=== PATIENT | male | born 1930 | race Caucasian/White ===

== ENCOUNTER → 2016-08-13 | Outpatient (CLI) | payer OTHER | LOC: FIMAGING 14:50 | PROVIDERS: ATTEND Physician Assistant Surgical | DX: M48.06 Spinal stenosis, lumbar region (principal); M89.38 Hypertrophy of bone, other site; M51.86 Other intervertebral disc disorders, lumbar region ==

== ENCOUNTER 2016-09-03 12:45 | Emergency (ER) | payer OTHER ==
[2016-09-03 12:55] VITALS: TEMP 98.2
[2016-09-03] MEDS ORDERED: NS 1,000 ML IV ONE (13:15)
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
--- NOTE | 2016-09-03 13:39 | CPEKG ---
Heart Rate: 83 RR Interval: 723 P-R Interval: 184 QRSD Interval: 96 QT Interval: 372 QTC Interval: 437 P Russian Mission: 58 QRS Russian Mission: -39 T Wave Russian Mission: 52 EKG Severity - BORDERLINE ECG - EKG Impression: SINUS RHYTHM EKG Impression: PROBABLE LEFT ATRIAL ABNORMALITY EKG Impression: LEFT AXIS DEVIATION EKG Impression: CONSIDER ANTERIOR INFARCT Electronically Signed By: Jamal Jamison 03-Sep-2016 13:51:07
[2016-09-03 13:56] LABS: % IMMATURE GRANULYOCYTES 0.4 % (0.0-1.1); ABSOLUTE IMMATURE GRANULOCYTES 0.03 10^3/uL (0.00-0.10); ADD DIFF? NO; ADD MORPH? NO; ADD SCAN? NO; ATYPICAL LYMPHOCYTE FLAG 0 (0-99); FRAGMENT RBC FLAG 0 (0-99); HEMATOCRIT 43.5 % (40.0-51.0); HEMOGLOBIN 14.7 g/dL (13.7-17.5); LEFT SHIFT FLG 0 (0-99); LIPEMIA HEMOLYSIS FLAG 90 (0-99); MEAN CELL HEMOGLOBIN 30.1 pg (27.9-34.1); MEAN CELL HEMOGLOBIN CONCENTR. 33.8 g/dL (32.4-36.7); MEAN PLATELET VOLUME 9.4 fL (8.7-11.7); PLATELET CLUMPS FLAG 0 (0-99); PLATELET COUNT 236 10^3/uL (150-400); RED BLOOD CELL COUNT 4.89 10^6/uL (4.40-6.38); RED CELL DISTRIBUTION WIDTH 14.4 % (11.5-15.2)
[2016-09-03 14:16] LABS: ANION GAP 13 mEq/L (8-16); CALCIUM 9.9 mg/dL (8.5-10.4); CARBON DIOXIDE 23 mEq/l (22-31); CHLORIDE 105 mEq/L (97-110); GLOMERULAR FILTRATION RATE > 60; GLUCOSE 137 mg/dL (70-100); POTASSIUM 4.2 mEq/L (3.5-5.2); SODIUM 141 mEq/L (134-144)
[2016-09-03 15:07] VITALS: BP 138/77; PULSE 87; RESP 18; O2SAT 97
== END 2016-09-03 15:07 | disposition home or self-care (01) ==
LOC: EDUNIT#
DX: F03.90 Unspecified dementia, unspecified severity, without behavioral disturbance, psychotic disturbance, mood disturbance, and anxiety (principal); I10 Essential (primary) hypertension; Z85.46 Personal history of malignant neoplasm of prostate; Z79.82 Long term (current) use of aspirin; V43.02XA Car driver injured in collision with other type car in nontraffic accident, initial encounter; Y92.481 Parking lot as the place of occurrence of the external cause; Y99.8 Other external cause status; Y93.89 Activity, other specified

== ENCOUNTER 2016-10-01 05:49 | Inpatient (IN) | payer OTHER ==
[2016-10-01] MEDS ORDERED: ceFAZolin 2 GM/DEXTROSE 100 ML IV ONE (06:17)
[2016-10-01] MEDS ORDERED: LR 1,000 ML IV ONE (06:21)
[2016-10-01] MEDS ORDERED: LIDOCAINE 1% 2 ML INJ ID PRN (06:21)
--- NOTE | 2016-10-01 06:39 | PDANEPAE ---
ANE History of Present Illness 85 yo M w lumbar radiculopathy, here for L1-4 laminectomy ANE Past Medical History - Cardiovascular History Hx Hypertension: Yes Hx Arrhythmias: No Hx Chest Pain: No Hx Coronary Artery / Peripheral Vascular Disease: No Hx CHF / Valvular Disease: No Hx Palpitations: No - Pulmonary History Hx COPD: No Hx Asthma/Reactive Airway Disease: No Hx Recent Upper Respiratory Infection: No Hx Oxygen in Use at Home: No - Neurologic History Hx Cerebrovascular Accident: No Hx Seizures: No Hx Dementia: No - Endocrine History Hx Diabetes: No - Renal History Hx Renal Disorders: No - Liver History Hx Hepatic Disorders: No - Neurological & Psychiatric Hx Hx Neurological and Psychiatric Disorders: Yes - Cancer History Hx Cancer: No - Congenital Disorder History Hx Congenital Disorders: No - GI History Hx Gastrointestinal Disorders: No - Chronic Pain History Chronic Pain: Yes ANE Review of Systems - Exercise capacity METS (RN): 3 METS - Systems Cardiac: Reports: other (h/o CAD s/p stent) - Cardio Pulmonary Function Testing Nuclear stress test: 09/20/2016 Nuclear stress test--negative ANE Patient History - Allergies Allergies/Adverse Reactions: atorvastatin [From Lipitor] Allergy (Verified 09/26/16 17:17) penicillin G Allergy (Verified 09/26/16 17:17) Sulfa (Sulfonamide Antibiotics) Allergy (Verified 09/26/16 17:17) Other-Enter Comments IV contrast Allergy (Uncoded 09/26/16 17:17) Other-Enter Comments - Home Medications Home medications: home medication list seen and reviewed Home Medications: Amlodipine Besylate [Norvasc] 5 mg PO DAILY 09/20/16 [Last Taken Unknown] Aspirin EC [Aspirin EC 325 mg (*)] 325 mg PO DAILY 09/20/16 [Last Taken Unknown] C/E/Zn/Cu/OM3/DHA/EPA/LUT/ZEAX [Preservision Areds 2 Softgel] 1 each PO BID [Last Taken Unknown] Docusate Sodium [Colace 100 MG (*)] 100 mg PO BID 09/20/16 [Last Taken Unknown] Gemfibrozil [Lopid 600 MG (*)] 600 mg PO BIDAC 09/20/16 [Last Taken Unknown] Herbals/Supplements -Info Only 1 ea PO DAILY 09/20/16 [Last Taken Unknown] Loratadine 10 mg PO DAILY 09/20/16 [Last Taken Unknown] Methimazole [Tapazole 5MG (*)] 5 mg PO DAILY 09/20/16 [Last Taken Unknown] Multivitamins [Multivitamin (*)] 1 tab PO DAILY 09/20/16 [Last Taken Unknown] Naproxen Sodium [Aleve 220 MG (*)] 220 mg PO BID 09/20/16 [Last Taken Unknown] Propylene Glycol/Peg 400 [Systane 0.3-0.4% Eye Drops] 1 drop EACHEYE BID [Last Taken Unknown] Psyllium Husk (with Sugar) [Metamucil Powder] 1 tsp PO DAILY 09/20/16 [Last Taken Unknown] Verapamil HCl [Verapamil Sr] 120 mg PO DAILY 09/20/16 [Last Taken Unknown] Tamsulosin HCl 09/26/16 [Last Taken Unknown] - NPO status NPO Since - Liquids (Date): 09/30/16 NPO Since - Liquids (Time): 20:00 NPO Since - Solids (Date): 09/30/16 NPO Since - Solids (Time): 20:00 - Anes Hx Anes Hx: no prior problems - Smoking Hx Smoking Status: Never smoked - Alcohol Use Alcohol Use: Occasionally - Family Anes Hx Family Anes Hx: none ANE Labs/Vital Signs - Labs - CBC WBC: 7 HGB: 13.8 HCT: 40.8 Platelet Count: 213 - Labs - BMP Sodium: 138 Potassium: 4.5 Chloride: 107 CO2: 21 Glucose: 128 BUN: 20 Creatinine: 1.1 - Vital Signs Blood Pressure: 142/79 Heart Rate: 64 Respiratory Rate: 16 O2 Sat (%): 95 Height: 185.42 cm Weight: 100.698 kg ANE Physical Exam - Airway Neck exam: FROM Mallampati Score: Class 2 Mouth exam: normal dental/mouth exam, tierney - Pulmonary Pulmonary: no respiratory distress, clear to auscultation - Cardiovascular Cardiovascular: regular rate and rhythym, no murmur, rub, or gallop - ASA Status ASA Status: III ANE Anesthesia Plan Anesthesia Plan: general endotracheal anesthesia Lines/Monitors: arterial line
[2016-10-01] MEDS ORDERED: BUPIVACAINE/EPI 0.25% 30 ML SDV ONE (06:42)
[2016-10-01] MEDS ORDERED: BACITRACIN 50,000 UNITS/10 ML SYR IRR ONE (06:42)
[2016-10-01] MEDS ORDERED: BUPIVACAINE 0.25% 30 ML SDV ONE (06:42)
[2016-10-01] MEDS ORDERED: THROMBIN (BOVINE) 20,000 UNIT VIAL TP ONE (06:42)
--- NOTE | 2016-10-01 06:48 | PDHPUP ---
History & Physical Update H&P update statement: This history and physical update is based on an assessment of the patient which was completed after admission or registration (within 24 hours), but prior to the surgery/procedure. -Patient is marked -Consents signed by daughter and patient. Risks,benefits and alternatives to L1- L4 laminectomy discussed.
[2016-10-01] MEDS ORDERED: VANCOMYCIN 1.5 GM in D5W 250 ML IV ONE (07:00)
[2016-10-01] MEDS ORDERED: REMIFENTANIL HCL 1 MG VIAL ONE (07:03)
[2016-10-01] MEDS ORDERED: fentaNYL 100 MCG/2 ML INJ ONE ×3 (07:03→10:37)
[2016-10-01] MEDS ORDERED: PROPOFOL/EMULSION 500 MG/50 ML BOTTLE IV ONE (07:03)
[2016-10-01] MEDS ORDERED: PROPOFOL 200 MG/20 ML VIAL ONE (07:03)
[2016-10-01] MEDS ORDERED: LIDOCAINE 2% 100 MG/5 ML SYR ONE (07:08)
[2016-10-01] MEDS ORDERED: POLYETHYLENE GLYCOL 3350 17 GM PKT PO PRN (07:38)
[2016-10-01] MEDS ORDERED: MAGNESIUM HYDROXIDE 30 ML UDCUP PO PRN (07:38)
[2016-10-01] MEDS ORDERED: ONDANSETRON 4 MG/2 ML VIAL IVP PRN ×3 (07:38→10:37)
[2016-10-01] MEDS ORDERED: BISACODYL 10 MG SUPP PR PRN (07:38)
[2016-10-01] MEDS ORDERED: ONDANSETRON DISINTEGRATING 4 MG TAB PO PRN (07:38)
[2016-10-01] MEDS ORDERED: LACTULOSE 20 GM/30 ML UDCUP PO PRN (07:38)
[2016-10-01] MEDS ORDERED: diphenhydrAMINE 25 MG CAP PO PRN (07:38)
[2016-10-01] MEDS ORDERED: NS 1,000 ML IV SCH (07:45)
[2016-10-01] MEDS ORDERED: epHEDrine SULFATE 10 MG/ML SYR ONE (08:46)
[2016-10-01] MEDS ORDERED: PHENYLEPHRINE HCL 100 MCG/ML SYR ONE (08:54)
[2016-10-01] MEDS ORDERED: HYDROmorphONE/DILAUDID 1 MG/ML SYR IVP PRN ×2 (09:27→10:37)
[2016-10-01] MEDS ORDERED: NALOXONE HCL 0.4 MG/ML INJ IVP PRN ×2 (09:27→10:37)
[2016-10-01] MEDS ORDERED: fentaNYL 100 MCG/2 ML INJ IVP PRN (09:27)
[2016-10-01] MEDS ORDERED: OXYCODONE/APAP 5/325 TAB PO PRN ×2 (09:27→10:37)
[2016-10-01] MEDS ORDERED: ACETAMINOPHEN 500 MG TAB PO PRN ×2 (09:27→10:37)
[2016-10-01] MEDS ORDERED: fentaNYL 100 MCG/2 ML INJ IV PRN (10:06)
--- NOTE | 2016-10-01 10:06 | POSTOPPROG ---
Post Op Note Date of Operation: 10/01/16 Surgeon: Adnrea Bowling Funder: Hakeem Anesthesia: GET(General Endotracheal) Pre-op Diagnosis: lumbar stenosis Post-op Diagnosis: lumbar stenosis Indication: lumbar stenosis Procedure: L1-L4 laminectomy Inf/Abcess present in the surg proc area at time of surgery?: No EBL: 100cc Drains: Meek ROSA Addendum - Addendum .: S: resting comfortable O: NAD A&Ox3 MAEx4 5/5 and equal in BUE and BLE A/P 85y/o male s/p L1-L4 laminectomy -JOANNE x1 -Optimize pain management -Advance diet as tolerated -PT/OT -DVT prophx: TEDs, SCDs, Lovenox okay POD1 -Please notify NS of any change in neuro/motor exam
[2016-10-01] MEDS: fentaNYL 100 MCG/2 ML INJ IVP PRN ×4 (10:36→11:07)
[2016-10-01] MEDS: PSYLLIUM METAMUCIL 1 PKT PO SCH (11:31)
[2016-10-01] MEDS: amLODIPine BESYLATE 5 MG TAB PO SCH (11:31)
[2016-10-01] MEDS: SENNOSIDES/DOCUSATE SODIUM TAB PO SCH ×2 (11:31→19:44)
[2016-10-01] MEDS: DOCUSATE SODIUM 100 MG CAP PO SCH ×2 (11:32→19:44)
[2016-10-01] MEDS: FAMOTIDINE 20 MG TAB PO SCH ×2 (11:32→19:44)
[2016-10-01] MEDS: CETIRIZINE 10 MG TAB PO SCH (11:32)
[2016-10-01] MEDS: ACETAMINOPHEN 500 MG TAB PO SCH ×2 (13:51→20:42)
[2016-10-01] MEDS: HYDROCODONE/APAP 5/325 TAB PO PRN ×3 (13:52→21:59)
--- NOTE | 2016-10-01 14:23 | POSTANESTH ---
Post Anesthetic Evaluation Cardiovascular Status: Normal, Stable, Similar to Pre-Op Cond Respiratory Status: Normal, Stable, Similar to Pre-op Cond. Level of Consciousness/Mental Status: Mildly Sleepy, Arousable Pain Control: Adequate, Prn Tx Ordered Nausea/Vomiting Control: Adequate, Prn Tx Ordered Complications Possibly Related to Anesthesia: None Noted
--- NOTE | 2016-10-01 14:42 | GOP ---
[f rep st] OPERATIVE REPORT DATE OF OPERATION: 10/01/2016 SURGEON: Andrea Bowling MD MANAGER TERMINAL: Belen Palacio, BEKAH ANESTHESIA: General. PREOPERATIVE DIAGNOSIS: 1. 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 (please note, the connotation for the radiologist is numbering these levels as L2 through L5, however, we will call these L1 through L4 for consistency purposes as he has a sacralized lumbar vertebra causing the difference in numbering). 2. Lower extremity claudication. 3. Treatment refractory to nonoperative intervention. POSTOPERATIVE DIAGNOSIS: 1. Decompressive laminectomy with bilateral medial facetectomies, L1-L2, L2-L3 , L3-L4 (L2-L5 per radiology numbering scheme). 2. Use of intraoperative fluoroscopy, less than 1 hour physician time. 3. Use of neuromonitoring. PROCEDURE PERFORMED: 1. Decompressive laminectomy with bilateral medial facetectomies, L1-L2, L2-L3 , L3-L4 (L2-L5 per radiology numbering scheme). 2. Use of intraoperative fluoroscopy, less than 1 hour physician time. 3. Use of neuromonitoring. FINDINGS: per imaging SPECIMENS: None. ESTIMATED BLOOD LOSS: 100 mL. INDICATIONS: The patient is an 85-year-old gentleman with a history of slight dementia, who presented with worsening lower extremity claudication. He had evidence of a spinal stenosis L1-L2, L2-L3, L3-L4, which were also numbered as L2-L3, L3-L4, L4-L5 per radiology's films. He also has spondylosis at these adequate equivalent levels. Given his age and complaint mainly of lower extremity symptoms, he decided to proceed forth with surgery as described above. DESCRIPTION OF PROCEDURE: Patient was brought to the operating theater and underwent general endotracheal anesthesia without complications. Venodynes, VALERIO hose and appropriate lines were placed by Anesthesia. He was flipped prone onto the Adam frame, and all bony processes were inspected and padded. The lower lumbar region was prepped and draped in the usual sterile surgical fashion. A time-out was completed per protocol. The patient received antibiotics within 1 hour of incision. Using lateral fluoroscopy and spinal needle, we picked our entry point to the L1 through L4 levels. This was marked in the midline. The incision was infiltrated with Marcaine with epinephrine. The incision was taken down with the scalpel blade, and using monopolar, taken down to the midline through to the spinous process, and a subperiosteal dissection carried to the medial facet joints of L1-L2, L2-L3, L3-L4. We correlated these with the imaging studies on the MRI and x-ray and correlated with the levels of L2 through L5 on the patient 's radiology numbering. At this point, using a combination of the bur tip on the drill bit, Kerrison punches, and Leksell rongeur, we completed a decompressive laminectomy with bilateral medial facetectomies, L1-L2, L2-L3, L3-L4. Once we felt that everything was well decompressed on manual palpation, we again confirmed our level using lateral fluoroscopy. The wound was irrigated copiously with bacitracin irrigation and a drain left in the subfascial space. The wound was then closed in multiple layers using Vicryl sutures for the deep layers and Dermabond for the skin. The patient's wounds were dressed sterilely. He was then flipped supine onto the transfer cart, where he was awakened, extubated, and taken to the recovery room in stable condition. There were no complications and no noted changes on neuromonitoring throughout the procedure. COMPLICATIONS: None. /[id number]/MODL MTDD
[2016-10-01] MEDS: traMADol 50 MG TAB PO PRN (15:16)
[2016-10-01] MEDS: PROPYLENE GLYCOL EACHEYE SCH ×2 (16:35→19:53)
[2016-10-01] MEDS: METHIMAZOLE 5 MG TAB PO SCH (16:35)
[2016-10-01] MEDS: PEG EACHEYE SCH ×2 (16:35→19:53)
[2016-10-01] MEDS: GEMFIBROZIL 600 MG TAB PO SCH (17:26)
[2016-10-01] MEDS: METHOCARBAMOL 500 MG TAB PO PRN (19:44)
[2016-10-01] MEDS ORDERED: VANCOMYCIN HCL/NORMAL SALINE 250 ML IV ONE (20:00)
[2016-10-02] MEDS: HYDROCODONE/APAP 5/325 TAB PO PRN ×5 (04:44→23:54)
[2016-10-02] MEDS: ACETAMINOPHEN 500 MG TAB PO SCH ×3 (05:16→19:27)
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
[2016-10-02] MEDS: VERAPAMIL ER 120 MG TAB PO SCH (09:36)
[2016-10-02] MEDS: PSYLLIUM METAMUCIL 1 PKT PO SCH (09:37)
[2016-10-02] MEDS: amLODIPine BESYLATE 5 MG TAB PO SCH (09:37)
[2016-10-02] MEDS: FAMOTIDINE 20 MG TAB PO SCH ×2 (09:37→19:21)
[2016-10-02] MEDS: DOCUSATE SODIUM 100 MG CAP PO SCH ×2 (09:37→19:21)
[2016-10-02] MEDS: CETIRIZINE 10 MG TAB PO SCH (09:37)
[2016-10-02] MEDS: METHIMAZOLE 5 MG TAB PO SCH (09:38)
[2016-10-02] MEDS: GEMFIBROZIL 600 MG TAB PO SCH ×3 (09:38→18:43)
[2016-10-02] MEDS: SENNOSIDES/DOCUSATE SODIUM TAB PO SCH ×2 (09:40→19:21)
[2016-10-02] MEDS: PROPYLENE GLYCOL EACHEYE SCH ×2 (09:41→19:24)
[2016-10-02] MEDS: PEG EACHEYE SCH ×2 (09:41→19:24)
[2016-10-02] MEDS: ENOXAPARIN 40 MG/0.4 ML SYR SC SCH (13:07)
[2016-10-03] MEDS: ACETAMINOPHEN 500 MG TAB PO SCH ×3 (03:13→15:47)
[2016-10-03] MEDS: HYDROCODONE/APAP 5/325 TAB PO PRN (03:45)
[2016-10-03] MEDS: VERAPAMIL ER 120 MG TAB PO SCH (08:01)
[2016-10-03] MEDS: FAMOTIDINE 20 MG TAB PO SCH ×2 (08:01→19:48)
[2016-10-03] MEDS: SENNOSIDES/DOCUSATE SODIUM TAB PO SCH ×2 (08:01→19:47)
[2016-10-03] MEDS: DOCUSATE SODIUM 100 MG CAP PO SCH ×2 (08:01→19:48)
[2016-10-03] MEDS: GEMFIBROZIL 600 MG TAB PO SCH ×2 (08:01→17:10)
[2016-10-03] MEDS: PSYLLIUM METAMUCIL 1 PKT PO SCH (08:01)
[2016-10-03] MEDS: ENOXAPARIN 40 MG/0.4 ML SYR SC SCH (08:01)
[2016-10-03] MEDS: METHOCARBAMOL 500 MG TAB PO PRN (08:01)
[2016-10-03] MEDS: METHIMAZOLE 5 MG TAB PO SCH (08:01)
[2016-10-03] MEDS: CETIRIZINE 10 MG TAB PO SCH (08:02)
[2016-10-03] MEDS: amLODIPine BESYLATE 5 MG TAB PO SCH (08:02)
[2016-10-03] MEDS: PEG EACHEYE SCH ×2 (08:09→19:51)
[2016-10-03] MEDS: PROPYLENE GLYCOL EACHEYE SCH ×2 (08:09→19:51)
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
[2016-10-03] MEDS: traMADol 50 MG TAB PO PRN ×2 (10:24→17:10)
[2016-10-03] MEDS: IBUPROFEN 600 MG TAB PO PRN (19:48)
[2016-10-04] MEDS: ACETAMINOPHEN 500 MG TAB PO SCH ×3 (00:21→15:30)
[2016-10-04 03:41] VITALS: TEMP 97.9
[2016-10-04] MEDS: METHOCARBAMOL 500 MG TAB PO PRN (04:06)
[2016-10-04] MEDS: traMADol 50 MG TAB PO PRN (04:07)
[2016-10-04 07:54] VITALS: BP 116/56; PULSE 58; RESP 12; O2SAT 89
[2016-10-04] MEDS: IBUPROFEN 600 MG TAB PO PRN (08:47)
[2016-10-04] MEDS: DOCUSATE SODIUM 100 MG CAP PO SCH (08:48)
[2016-10-04] MEDS: GEMFIBROZIL 600 MG TAB PO SCH (08:48)
[2016-10-04] MEDS: SENNOSIDES/DOCUSATE SODIUM TAB PO SCH (08:48)
[2016-10-04] MEDS: amLODIPine BESYLATE 5 MG TAB PO SCH (08:48)
[2016-10-04] MEDS: FAMOTIDINE 20 MG TAB PO SCH (08:48)
[2016-10-04] MEDS: METHIMAZOLE 5 MG TAB PO SCH (08:48)
[2016-10-04] MEDS: CETIRIZINE 10 MG TAB PO SCH (08:49)
[2016-10-04] MEDS: VERAPAMIL ER 120 MG TAB PO SCH (08:49)
[2016-10-04] MEDS: ENOXAPARIN 40 MG/0.4 ML SYR SC SCH (08:50)
[2016-10-04] MEDS: PSYLLIUM METAMUCIL 1 PKT PO SCH (08:50)
[2016-10-04] MEDS: PEG EACHEYE SCH (09:09)
[2016-10-04] MEDS: PROPYLENE GLYCOL EACHEYE SCH (09:09)
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
== END 2016-10-04 15:41 | DRG 520 ==
LOC: F3N 05:49 → PREINTOOBSV 10:35 → SCHOBSVTOIN 10:45 → SCHINTOOBSV 10:46 → F3N 11:11 → OBSVTOIN 10-03 12:35
PROVIDERS: ADMIT Neurological Surgery; ATTEND Neurological Surgery
DX: M48.06 Spinal stenosis, lumbar region (principal); M47.896 Other spondylosis, lumbar region; F03.90 Unspecified dementia, unspecified severity, without behavioral disturbance, psychotic disturbance, mood disturbance, and anxiety; I48.91 Unspecified atrial fibrillation; N40.0 Benign prostatic hyperplasia without lower urinary tract symptoms; E78.5 Hyperlipidemia, unspecified; I10 Essential (primary) hypertension; E05.90 Thyrotoxicosis, unspecified without thyrotoxic crisis or storm; I73.9 Peripheral vascular disease, unspecified; Z95.5 Presence of coronary angioplasty implant and graft; Z85.46 Personal history of malignant neoplasm of prostate
CPT/HCPCS: 97116-GP; 97161-GP; 97166-GO; 97535-GO; G0378; G8987-GO-CK; G8988-GO-CJ; J1650; J2001; J2370; J2704; J3010; J3370

== ENCOUNTER 2017-03-19 17:58 | Inpatient (IN) | payer OTHER ==
--- NOTE | 2017-03-19 18:17 | EDPHY ---
H & P HPI/ROS: CHIEF COMPLAINT: AMS, weakness. HISTORY OF PRESENT ILLNESS: This patient is an 86 y/o male with recent diagnosis of dementia arriving via EMS with his daughter for evaluation of altered mental status and weakness. He lives alone in his own home, and his daughter discovered him lying sideways in bed, staring at the ceiling. Per nurse summary of EMS report, he was hypertensive and febrile in transport, oriented to person and place. He has history of frequent UTIs, and his daughter at bedside reports he has had a cough for several weeks. The patient reports he felt weak this morning. He thinks he was able to get up today, but then admits his daughter brought him here because he was unable to get out of bed. He denies current weakness, confusion, or illness. No headache, chest pain, abdominal pain, or dysuria. Further HPI limited by patient's dementia. REVIEW OF SYSTEMS: A 10 point review of systems was attempted, limited by patient's dementia. Past Medical/Surgical History: 1. Hypertension 2. Prostate cancer 3. Lymphoma 4. Melanoma Social History: Lives alone in his own home. Daughter at bedside. Nonsmoker. Smoking Status: Never smoked Physical Exam: General Appearance: Alert, slow to speak Eyes: Pupils equal and round, no conjunctival pallor or injection ENT, Mouth: Mucous membranes moist Neck: Normal inspection Respiratory: Lungs are clear to auscultation Cardiovascular: Regular rate and rhythm Gastrointestinal: Suprapubic fullness. Abdomen is soft and non-tender Neurological: Alert, oriented to person and place, nonfocal Skin: Warm and dry, no rash Extremities: Nontender, no pedal edema Psychiatric: Mood and affect normal Constitutional: Initial Vital Signs Temperature (C) 37.5 C 03/19/17 18:32 Heart Rate 78 03/19/17 18:32 Respiratory Rate 16 03/19/17 18:32 Blood Pressure 175/98 H 03/19/17 18:32 O2 Sat (%) 90 L 03/19/17 18:32 O2 Delivery Mode Room Air O2 (L/minute) 0.5 Allergies/Adverse Reactions: atorvastatin [From Lipitor] Allergy (Verified 09/26/16 17:17) penicillin G Allergy (Verified 09/26/16 17:17) Sulfa (Sulfonamide Antibiotics) Allergy (Verified 09/26/16 17:17) Other-Enter Comments IV contrast Allergy (Uncoded 09/26/16 17:17) Other-Enter Comments Home Medications: Medication Instructions Recorded Amlodipine Besylate [Norvasc] 5 mg PO DAILY 09/20/16 Aspirin EC [Aspirin EC 325 mg (*)] 325 mg PO DAILY 09/20/16 C/E/Zn/Cu/OM3/DHA/EPA/LUT/ZEAX 1 each PO BID 09/20/16 [Preservision Areds 2 Softgel] Gemfibrozil [Lopid 600 MG (*)] 600 mg PO BIDAC 09/20/16 Herbals/Supplements -Info Only 1 ea PO DAILY 09/20/16 Loratadine 10 mg PO DAILY 09/20/16 Methimazole [Tapazole 5MG (*)] 5 mg PO DAILY 09/20/16 Multivitamins [Multivitamin (*)] 1 tab PO DAILY 09/20/16 Naproxen Sodium [Aleve 220 MG (*)] 220 mg PO BID 09/20/16 Propylene Glycol/Peg 400 [SYSTANE 1 drop EACHEYE BID 09/20/16 0.3-0.4% EYE DROPS] Psyllium Husk (with Sugar) 1 tsp PO TID PRN 09/20/16 [Metamucil Powder] Verapamil HCl [Verapamil Sr] 120 mg PO DAILY 09/20/16 Tamsulosin HCl [Flomax 0.4 MG (*)] 0.4 mg PO BID 10/01/16 Melatonin [Melatonin 3 MG (*)] 3 mg PO HS 03/19/17 Medical Decision Making - Diagnostics Imaging Results: Imaging Impressions Abdomen X-Ray 03/20/17 12:24 Impression: 1. Mild air distention of the transverse colon, of questionable clinical significance, without definite evidence of obstruction. If symptoms persist and clinical suspicion warrants, consider CT. 2. Moderate stool in the proximal colon. CT brain: NAD Imaging: I viewed and interpreted images myself ED Course/Re-evaluation: 86 y/o male presents with altered mental status and weakness. He is alert but slow to speak, oriented to person and place. History of UTIs. Bladder feels distended on physical exam. Bladder scan reveals 800 mL of urine in the bladder. A Singer catheter was placed, with return of 1100 mL of urine. IV established. Plan for labs including CBC, chemistries, coag, UA, lactic acid, influenza swab. Plan for chest x-ray. Administered 1L IV NS. Chest x-ray negative for pneumonia. Urinalysis reveals 3-5 white blood cells. Urine culture sent. Rocephin 1 g IV given for possible urinary tract infection. Allergies discussed with the pt and his daughter; no allergy to pcn. AMS likely secondary to UTI, no other source identified. 19:45 Consulted with hospitalist service. Dr. Kerr accepts admission. Differential Diagnosis: Altered mental status including but not limited to hypoglycemia, infectious process, electrolyte abnormality, head injury and intoxicants. - Data Points Laboratory Results: Laboratory Results 03/20/17 04:50 03/20/17 04:50 Microbiology Results: MICROBIOLOGY 03/19/17 19:00 Urine,Clean Catch Urine Culture - Preliminary 03/20/17 04:23 Stool Gastrointestinal Tract Panel (PCR) - Final No Organism Detected Medications Given: Amlodipine Besylate (Norvasc) 5 mg PO DAILY NHI Stop: 09/16/17 08:59 Last Admin: 03/20/17 09:36 Dose: 5 mg Aspirin Buffered (Aspirin Ec) 325 mg PO DAILY NHI Stop: 09/16/17 08:59 Last Admin: 03/20/17 09:36 Dose: 325 mg Gemfibrozil (Lopid) 600 mg PO BIDAC NHI Stop: 09/16/17 17:29 Last Admin: 03/20/17 18:03 Dose: 600 mg Heparin Sodium (Porcine) (Heparin Sc Injection) 5,000 unit SC Q8 NHI Stop: 09/16/17 05:59 Last Admin: 03/20/17 14:07 Dose: 5,000 unit Lactated Ringer's (Lr) 1,000 mls @ 75 mls/hr IV CONT NHI Stop: 09/15/17 23:44 Last Admin: 03/20/17 11:17 Dose: 1,000 mls Ibuprofen (Motrin) 400 mg PO Q6HRS PRN PRN Reason: Pain, Inflammatory Stop: 09/16/17 10:03 Last Admin: 03/20/17 11:19 Dose: 400 mg Methimazole (Tapazole) 5 mg PO DAILY NHI Stop: 09/16/17 08:59 Last Admin: 03/20/17 09:35 Dose: 5 mg Multivitamins (Tab-A-Cassandra) 1 each PO DAILY NHI Stop: 09/16/17 08:59 Last Admin: 03/20/17 09:36 Dose: 1 each Tamsulosin HCl (Flomax) 0.4 mg PO BID NHI Stop: 09/16/17 08:59 Last Admin: 03/20/17 09:36 Dose: 0.4 mg Verapamil HCl (Calan Sr) 120 mg PO DAILY NHI Stop: 09/16/17 08:59 Last Admin: 03/20/17 09:35 Dose: 120 mg Discontinued Medications Sodium Chloride (Ns) 1,000 mls @ 0 mls/hr IV ONCE ONE; Wide Open PRN Reason: Protocol Stop: 03/19/17 18:22 Last Admin: 03/19/17 18:29 Dose: 1,000 mls Ceftriaxone Sodium/Dextrose (Rocephin 1 Gm (Premix)) 50 mls @ 100 mls/hr IV EDNOW ONE PRN Reason: Protocol Stop: 03/19/17 20:16 Last Admin: 03/19/17 19:56 Dose: 50 mls Departure - Departure Disposition: [facility] Inpatient Acute Clinical Impression: UTI (urinary tract infection) Qualifiers: Urinary tract infection type: acute cystitis Hematuria presence: without hematuria Qualified Code(s): N30.00 - Acute cystitis without hematuria Altered mental status Qualifiers: Altered mental status type: unspecified Qualified Code(s): R41.82 - Altered mental status, unspecified Condition: Fair Report Scribed for: Bridget Napier Report Scribed by: Laurie Perez Date of Report: 03/19/17 Time of Report: 18:17 Physician Review and Approval Statement: 03/19/17 18:17 Portions of this note were transcribed by a medical coding specialist. I personally performed a history, physical exam, medical decision making, and confirmed accuracy of information the transcribed note.
[2017-03-19] MEDS ORDERED: NS 1,000 ML IV ONE (18:21)
[2017-03-19 18:57] LABS: PLATELET COUNT 309 10^3/uL (150-400)
[2017-03-19 19:11] LABS: INR 1.12 (0.83-1.16); PROTIME(PATIENT) 14.6 SEC (12.0-15.0)
[2017-03-19] MEDS ORDERED: ACETAMINOPHEN 325 MG TAB PO PRN (22:22)
[2017-03-19] MEDS ORDERED: ONDANSETRON 4 MG/2 ML VIAL IVP PRN (22:22)
[2017-03-19] MEDS ORDERED: NS 1,000 ML IV SCH (22:30)
--- NOTE | 2017-03-19 23:25 | PDGENHP ---
History and Physical - Chief Complaint weakness, confusion - History of Present Illness Source - patient is able to provide majority of the history. He is AAOx3 but intermittently still confused and quite fatigued. Daughter at bedside and supplements details. Case discussed with accepting provider. EMR reviewed. 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 PAtient reports his symptoms started suddenly this morning. He was attempting to make up his but but found he was too weak to complete the task so he layed on the bed. Daughter came to visit and found the patient laying on his back across the bed awake but confused and weak. Patient denies any fevers/chills. no nausea/ vomiting/diarrhea. patient denies cough/sob/chest pain. he reports loose stools since arrival to the floor. RN noting a few large hard pieces of stool present along with loose stools. denies abdominal pain. patient denies any dysuria/ hematuria however in the ED patient was noted to be retaining after a bladder scan and catheterization resulted in approximately 800 mls by report. History Information - Allergies/Home Medication List Allergies/Adverse Reactions: atorvastatin [From Lipitor] Allergy (Verified 09/26/16 17:17) penicillin G Allergy (Verified 09/26/16 17:17) Sulfa (Sulfonamide Antibiotics) Allergy (Verified 09/26/16 17:17) Other-Enter Comments IV contrast Allergy (Uncoded 09/26/16 17:17) Other-Enter Comments Home Medications: Amlodipine Besylate [Norvasc] 5 mg PO DAILY 09/20/16 [Last Taken 03/18/17] Aspirin EC [Aspirin EC 325 mg (*)] 325 mg PO DAILY 09/20/16 [Last Taken 03/18/17 ] C/E/Zn/Cu/OM3/DHA/EPA/LUT/ZEAX [Preservision Areds 2 Softgel] 1 each PO BID [Last Taken 03/18/17] Gemfibrozil [Lopid 600 MG (*)] 600 mg PO BIDAC 09/20/16 [Last Taken 03/18/17] Herbals/Supplements -Info Only 1 ea PO DAILY 09/20/16 [Last Taken 03/18/17] Loratadine 10 mg PO DAILY 09/20/16 [Last Taken 03/18/17] Methimazole [Tapazole 5MG (*)] 5 mg PO DAILY 09/20/16 [Last Taken 03/18/17] Multivitamins [Multivitamin (*)] 1 tab PO DAILY 09/20/16 [Last Taken 03/18/17] Naproxen Sodium [Aleve 220 MG (*)] 220 mg PO BID 09/20/16 [Last Taken 03/18/17] Propylene Glycol/Peg 400 [SYSTANE 0.3-0.4% EYE DROPS] 1 drop EACHEYE BID [Last Taken Unknown] Psyllium Husk (with Sugar) [Metamucil Powder] 1 tsp PO TID PRN 09/20/16 [Last Taken 03/18/17] Verapamil HCl [Verapamil Sr] 120 mg PO DAILY 09/20/16 [Last Taken 03/18/17] Tamsulosin HCl [Flomax 0.4 MG (*)] 0.4 mg PO BID 10/01/16 [Last Taken 03/18/17 21:00] Melatonin [Melatonin 3 MG (*)] 3 mg PO HS 03/19/17 [Last Taken 03/18/17] I have personally reviewed and updated: family history, medical history, social history, surgical history - Past Medical History Additional medical history: atrial fib. CAD s/p stent. HLD. HTN. BPH wiht history of prostate CA s/p radiation tx. lymphoma. melanoma. dementia. hyperthyroidism. hx spinal stenosis - Surgical History Additional surgical history: L1-4 laminectomy - Family History Additional family history: denies - Social History Smoking Status: Never smoked Alcohol Use: None Drug Use: None Additional social history: Patient lives alone. daughter in town and supportive. COR - FULL. patient with advance directives in place. daughter Jeanette is MDPOA. Review of Systems Review of Systems: ROS: 10pt was reviewed & negative except for what was stated in HPI & below Physical Exam Physical Exam: Temp Pulse Resp BP Pulse Ox 36.9 C 79 13 157/89 H 96 03/19/17 22:34 03/19/17 22:34 03/19/17 22:34 03/19/17 22:34 03/19/17 22:34 O2 (L/minute) 2 Constitutional: no apparent distress, chronically ill appearing, other (Patient lays quietly in bed. acute on chronically ill but nontoxic. pale. awake. responses quite slowed. ) Eyes: PERRL (slightly decreased reactivity to light bilaterally but symmetric. ) , anicteric sclera, EOMI, No scleral injection Ears, Nose, Mouth, Throat: dry mucous membranes, other (no nasal discharge. ), No oral ulcer, No poor dentition Cardiovascular: regular rate and rhythym, no murmur, rub, or gallop Peripheral Pulses: 1+: dorsalis-pedis (R), dorsalis-pedis (L) Respiratory: no respiratory distress, no rales or rhonchi, clear to auscultation , reduced air movement (decreased inspiratory effort. ) Genitourinary: no bladder tenderness (patient denies pain/pressure. palpation over bladder pt with slight response no grimace. ), No no bladder fullness, No calderón in urethra Skin: warm, other (pallor), No rash Musculoskeletal: generalized weakness (upper and lower extremities. patient able to lift extremities off bed but notably weak. ) Neurologic: AAOx3 (patient oriented however appears still slightly confused. patient attempts to bite off his pulse ox monitor sticker despite clarification from daughter reason for its placement. ) Psychiatric: interacting appropriately, not anxious, flat affect, other (+ psychomotor delay, responses appropriate however.) Lab Data & Imaging Review 03/19/17 18:43 03/19/17 18:43 WBC 18.53 10^3/uL (3.80-9.50) H 03/19/17 18:43 RBC 4.83 10^6/uL (4.40-6.38) 03/19/17 18:43 Hgb 14.4 g/dL (13.7-17.5) 03/19/17 18:43 Hct 42.3 % (40.0-51.0) 03/19/17 18:43 MCV 87.6 fL (81.5-99.8) 03/19/17 18:43 MCH 29.8 pg (27.9-34.1) 03/19/17 18:43 MCHC 34.0 g/dL (32.4-36.7) 03/19/17 18:43 RDW 14.8 % (11.5-15.2) 03/19/17 18:43 Plt Count 309 10^3/uL (150-400) 03/19/17 18:43 MPV 10.2 fL (8.7-11.7) 03/19/17 18:43 Neut % (Auto) 88.1 % (39.3-74.2) H 03/19/17 18:43 Lymph % (Auto) 4.8 % (15.0-45.0) L 03/19/17 18:43 [place] % (Auto) 6.2 % (4.5-13.0) 03/19/17 18:43 Eos % (Auto) 0.1 % (0.6-7.6) L 03/19/17 18:43 Baso % (Auto) 0.2 % (0.3-1.7) L 03/19/17 18:43 Nucleat RBC Rel Count 0.0 % (0.0-0.2) 03/19/17 18:43 Absolute Neuts (auto) 16.32 10^3/uL (1.70-6.50) H 03/19/17 18:43 Absolute Lymphs (auto) 0.89 10^3/uL (1.00-3.00) L 03/19/17 18:43 Absolute Monos (auto) 1.15 10^3/uL (0.30-0.80) H 03/19/17 18:43 Absolute Eos (auto) 0.01 10^3/uL (0.03-0.40) L 03/19/17 18:43 Absolute Basos (auto) 0.04 10^3/uL (0.02-0.10) 03/19/17 18:43 Absolute Nucleated RBC 0.00 10^3/uL (0-0.01) 03/19/17 18:43 Immature Gran % 0.6 % (0.0-1.1) 03/19/17 18:43 Immature Gran # 0.12 10^3/uL (0.00-0.10) H 03/19/17 18:43 PT 14.6 SEC (12.0-15.0) 03/19/17 18:43 INR 1.12 (0.83-1.16) 03/19/17 18:43 APTT 29.1 SEC (23.0-38.0) 03/19/17 18:43 VBG Lactic Acid 2.0 mmol/L (0.7-2.1) 03/19/17 19:20 Sodium 145 mEq/L (134-144) H 03/19/17 18:43 Potassium 4.4 mEq/L (3.5-5.2) 03/19/17 18:43 Chloride 104 mEq/L (97-110) 03/19/17 18:43 Carbon Dioxide 21 mEq/l (22-31) L 03/19/17 18:43 Anion Gap 20 mEq/L (8-16) H 03/19/17 18:43 BUN 21 mg/dL (7-23) 03/19/17 18:43 Creatinine 1.5 mg/dL (0.7-1.3) H 03/19/17 18:43 Estimated GFR 44 03/19/17 18:43 Glucose 131 mg/dL (70-100) H 03/19/17 18:43 Calcium 10.6 mg/dL (8.5-10.4) H 03/19/17 18:43 Total Bilirubin 0.9 mg/dL (0.1-1.4) 03/19/17 18:43 Urine Color YELLOW 03/19/17 19:00 Urine Appearance CLEAR 03/19/17 19:00 Urine pH 5.0 (5.0-7.5) 03/19/17 19:00 Ur Specific [place] 1.018 (1.002-1.030) 03/19/17 19:00 Urine Protein 1+ (NEGATIVE) H 03/19/17 19:00 Urine Ketones NEGATIVE (NEGATIVE) 03/19/17 19:00 Urine Blood NEGATIVE (NEGATIVE) 03/19/17 19:00 Urine Nitrate NEGATIVE (NEGATIVE) 03/19/17 19:00 Urine Bilirubin NEGATIVE (NEGATIVE) 03/19/17 19:00 Urine Urobilinogen 2.0 EU (0.2-1.0) H 03/19/17 19:00 Ur Leukocyte Esterase NEGATIVE (NEGATIVE) 03/19/17 19:00 Urine RBC 1-3 /hpf (0-3) 03/19/17 19:00 Urine WBC 3-5 /hpf (0-3) H 03/19/17 19:00 Ur Epithelial Cells NONE SEEN /lpf (NONE-1+) 03/19/17 19:00 Calcium Oxalate Crystal PRESENT /hpf (NONE-1+) 03/19/17 19:00 Hyaline Casts 1-5 /lpf (0-1) 03/19/17 19:00 Urine Mucus TRACE /lpf (NONE-1+) 03/19/17 19:00 Urine Glucose NEGATIVE (NEGATIVE) 03/19/17 19:00 Nasal Influenza A PCR NEGATIVE FOR FLU A (NEGATIVE) 03/19/17 19:27 Nasal Influenza B PCR NEGATIVE FOR FLU B (NEGATIVE) 03/19/17 19:27 Imaging Review: Chest, AP and Lateral History: Sepsis Comparison: September 03, 2016 PA and lateral Findings: Inspiratory phase is decreased. Lungs are clear, without infiltrate or consolidation. Heart size and pulmonary vascularity are normal considering portable technique. There is no adenopathy or mass lesion. There is no pleural effusion . 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 Bones are otherwise unremarkable for age. Impression: No pneumonia. A routine upright PA chest would be helpful to best evaluate the cardiothoracic equilibrium. ____ CT Scan of the Head (Without Contrast) Clinical History: 86-year-old male in the ED with confusion and weakness. Technique: Axial unenhanced images were obtained from the vertex through the skull base, reformatted at 5.00 and 1.50 mm increments, and reviewed in bone, brain, and subdural windows. Images were reprocessed in parasagittal and paracoronal planes. Dose reduction techniques were utilized. The DFOV is 23.2 cm. Comparison Study: CT scan of the head, dated 09/03/2016. Findings: Again, there is prominence of the ventricles and basilar cisterns with cortical sulcal widening, consistent with moderately advanced cerebral cortical atrophy. There is periventricular diminished attenuation, consistent with chronic microvascular ischemic gliosis. There is no midline shift, or other evidence of mass effect. There is no abnormal intra or extra-axial blood collection, or acute infarction identified. There is normal hameed-white matter differentiation. The brainstem and cerebellum are normal. There is atherosclerotic calcification of the vertebral arteries near the skull base, and also involving the cavernous and proximal supraclinoid carotid arteries. There is trace mucosal thickening at the frontal-ethmoidal recesses. The mastoids are patent. The craniocervical junction, sella turcica, pineal gland, and the orbits are within normal limits. There is no acute calvarial fracture, or osteolytic or blastic lesion. Impression: Moderately advanced senescent features, with no acute intracranial abnormality identified on this unenhanced CT evaluation, or significant interval change since 09/03/2016. If there is further clinical concern regarding the patient's symptoms, MR imaging is suggested, if not otherwise contraindicated. Findings were discussed with FER TORO MD at 20:45, on 03/19/2017. Assessment & Plan Assessment: #Altered mental status (Acute) - ddx including dehydration, infectious, metabolic vs uremia. improved since admission after IVF but still some confusion. patient now oriented x 3. continue IVF. continue rocephin pending #Pyuria (urinary tract infection) (Acute) - patient asx by report however does appear to withdraw slightly with palpation over the bladder. he denies pain. he is also having acute urinary retention (see below) no other source for suspected infection identified and patient is afebrile. (cxr clear) patient UA significant only 3-5 WBCs. cultures are pending. previous notes indicate history of recurrent UTI however patient denies this. #theresa - baseline creatinine appears to be approx 1.0. likely pre-renal in setting of dehydration. IVF overnight and recheck bmp. consider renal imaging in setting of retension if no improvement in renal function in AM. #acute urinary retention - PVR and straight cath prn. pt with history of prostate ca s/p radiation therapy. patient without fecal incontinence or other focal deficits to suggest cord compression. continue flomax. #generalized weakness - PT/OT after patient initial treatment with IV hydration. #dehydration - IVFto continue overnight. patient continues to appear clinically dehydrated. #SIRS with leukocytosis, initial tachycardia now improved. lactate acceptable. qsofa score 1. monitor blood and urine cultures. continue rocephin as above. chronic medical conditions #benign essential HTN - BPs slightly elevated but acceptable in this 86 yo gentleman. will plan to resume his home medications unless potentially nephrotoxic. #BPH - listed in record patient denies but is on flomax. hx of prostate ca s/p radiation. #paroxysmal atrial fibrillation - HR normal and regular at this time. will not add cardiac monitoring at this time unless changes develop. #hyperthyroidism/Grave's disease - check tsh. continue methimazole. #spinal stenosis - stable. s/p lumbar diskectomy. FEN - IVF. replace electrolytes prn. advance diet as tolerated. encourage oral hydration PPX - SCDs. heparin. COR - FULL. daughter Jeanette CARRASCO. Dispo - Admit to observation at this time on the medical floor.
[2017-03-20] MEDS: LR 1,000 ML IV SCH ×2 (00:22→11:17)
[2017-03-20] MEDS: HEPARIN 5,000 UNIT/0.5 ML SYR SC SCH ×3 (05:35→23:03)
[2017-03-20 05:36] LABS: PLATELET COUNT 266 10^3/uL (150-400)
[2017-03-20 05:48] LABS: CREATINE KINASE 321 IU/L (0-224)
[2017-03-20] MEDS ORDERED: NON-FORMULARY NEW DRUG (Verapamil Hcl [Verapamil Sr] 120 MG) PO SCH (09:00)
[2017-03-20] MEDS ORDERED: Herbals/Supplements -Info Only PO SCH (09:00)
[2017-03-20] MEDS: METHIMAZOLE 5 MG TAB PO SCH (09:35)
[2017-03-20] MEDS: VERAPAMIL ER 120 MG TAB PO SCH (09:35)
[2017-03-20] MEDS: amLODIPine BESYLATE 5 MG TAB PO SCH (09:36)
[2017-03-20] MEDS: ASPIRIN EC 325 MG TAB PO SCH (09:36)
[2017-03-20] MEDS: MULTIVITAMINS 1 EACH TAB PO SCH (09:36)
[2017-03-20] MEDS: TAMSULOSIN HCL 0.4 MG CAP PO SCH ×2 (09:36→23:02)
[2017-03-20] MEDS: IBUPROFEN 200 MG TAB PO PRN ×2 (11:19→23:30)
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
--- NOTE | 2017-03-20 16:05 | ASMTCMCOM ---
CM Note CM Note Notes: Pt admitted w/weakness and confusion, possible UTI. PT recommending SNF at this time. Met w/pt's dtr, Jeanette, who was open to this. She said her Dad was somewhat confused at this time and may be resistant to this initially but she feels he will most likely need SNF rehab as well. Jeanette said that pt did SNF stay at [facility] last September which they "were not thrilled with". We talked about other facilites. [facility], [facility] and [facility] all of which are contracted w/[facility]. Also sent referral to [facility] per pt's dtr's request to see what options are for going there, left voicemail for Keagan at . Private duty list given to dtr as she looks ahead and sees that he is going to be requiring more care if he goes back home after SNF stay. LILIANE w/f. Date Signed: 03/20/2017 04:05 PM Electronically Signed By:Criss Castellano RN
--- NOTE | 2017-03-20 16:37 | WOCRNPDOC ---
WOCRN Advanced Assessment Note - Skin Integrity Problem, Advanced Assess Perianal Incont Assoc Dermatitis Dressing Type: Open to Air Skin Integrity Problem Comment: Mild IAD without any weeping areas. Erythema extends out approximately 6 cm from the anus. Patient stooling during application of Cavillon ASP wand. Wound care will check in tomorrow. Latosha SCOTT and Haley FISHERIES OFFICER in room for care. Please do not apply creams or lotions to zack anal area and only wipe with pink bath wipes. The dimethicone will breakdown the ASP barrier that is protecting the skin from the stool.
[2017-03-20] MEDS: GEMFIBROZIL 600 MG TAB PO SCH (18:03)
[2017-03-20] MEDS: MELATONIN 3 MG TAB PO SCH (23:02)
[2017-03-21 04:53] LABS: PLATELET COUNT 231 10^3/uL (150-400)
[2017-03-21] MEDS: HEPARIN 5,000 UNIT/0.5 ML SYR SC SCH ×3 (05:33→22:42)
[2017-03-21] MEDS: GEMFIBROZIL 600 MG TAB PO SCH ×2 (09:05→17:24)
[2017-03-21] MEDS: VERAPAMIL ER 120 MG TAB PO SCH (10:08)
[2017-03-21] MEDS: METHIMAZOLE 5 MG TAB PO SCH (10:09)
[2017-03-21] MEDS: MULTIVITAMINS 1 EACH TAB PO SCH (10:09)
[2017-03-21] MEDS: ASPIRIN EC 325 MG TAB PO SCH (10:09)
[2017-03-21] MEDS: TAMSULOSIN HCL 0.4 MG CAP PO SCH ×2 (10:09→19:55)
[2017-03-21] MEDS: amLODIPine BESYLATE 5 MG TAB PO SCH (10:09)
[2017-03-21] MEDS ORDERED: LOPERAMIDE HCL 2 MG CAP PO PRN (11:32)
[2017-03-21] MEDS ORDERED: PROTOCOL POTASSIUM 1 DOSE MISC PRN (11:33)
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
[2017-03-21] MEDS ORDERED: POTASSIUM CL 10 MEQ TAB PO ONE ×2 (12:28→22:01)
--- NOTE | 2017-03-21 12:33 | WOCRNPDOC ---
TRAN Advanced Assessment Note - Skin Integrity Problem, Advanced Assess Perianal Incont Assoc Dermatitis Dressing Type: Open to Air (application of Calvilon ASP yesterday by TRAN) Skin Integrity Problem Comment: Assessed site today to determine efficacy of protective barrier film (Cavilon ASP) applied yesterday by wound RN. Site remains raw and denuded due to patient's frequent stools. Per nursing, he continues to have frequent, loose BMs, necessitating frequent zack-care. Unable to ascertain if barrier film is effective. Continue w/ plan of care for now, which involves use of bath wipes instead of dimethicone zack wipes (which breakdown the applied barrier film). Wound RN will re-assess on Friday 03/23 or Saturday 03/24 to determine if patient needs another application of ASP treatment , or if he requires new orders. Report given to senior support engineer Tiara.
[2017-03-21] MEDS: VENLAFAXINE XR 37.5 MG CAP PO SCH (12:51)
[2017-03-21] MEDS: LR 1,000 ML IV SCH (12:51)
--- NOTE | 2017-03-21 15:15 | ECHO ---
[email or web address] [address] [address] Main: [phone] Fax: Transthoracic Echocardiogram Name: MICHAELLE RUVALCABA MR#: [id number] Study Date: 03/21/2017 Study Time: 11:48 AM Date of : 1930 Age: 86 year(s) Height: 185.4 cm (73 in.) Weight: 102.06 kg (225 lb.) BSA: 2.26 m2 Gender: Male Examination: Echo Indication: progressive weakness Image Quality: Adequate Contrast: Requested by: Sis Del Valel BP: 115 mmHg/64 mmHg Heart Rate: Rhythm: Normal sinus rhythm Indication: progressive weakness Procedure Staff Well Surveying Engineer: Kierra Hedrick Reading Physician: Kemal Chu Requesting Provider: Conclusions: Mild concentric LV hypertrophy. EF is 69 %. No regional wall motion abnormality. Trivial to mild mitral regurgitation. No aortic valve stenosis is present. There is no previous echocardiogram for comparison. Measurements: Chambers Valvular Assessment AV/MV Valvular Assessment TV/PV Normal Normal Normal Name Value Range Name Value Range Name Value Range Ao Melanie (MM): 3.0 cm (2.2 cm-3.7 AV Vmax: 1.08 m/s (1 m/s-1.7 PV Vmax: 0.87 m/s (0.6 m/s-0.9 cm) m/s) m/s) IVSd (2D): 1.3 cm (0.6 cm-1.1 AV maxP mmHg ( - ) PV PGmax: 3 mmHg ( - ) cm) LVOT Vmax: 0.86 m/s (0.7 m/s-1.1 LVDd (2D): 4.8 cm (4.2 cm-5.9 m/s) cm) MV E Vmax: 0.54 m/s ( - ) LVDs (2D): 3.3 cm (2.1 cm-4 MV A Vmax: 0.76 m/s ( - ) cm) MV E/A: 0.71 ( - ) LVPWd (2D): 1.1 cm (0.6 cm-1 cm) LVEF (BP): 69 % (>=55 %) Continued Measurements: Chambers Valvular Assessment AV/MV Name Value Name Value LADs Lon.9 cm MV DecTime: 289 m/s LA Area: 14.5 cm2 MV E/E' Septal: 13.30 LA Volume: 34 ml MV E/E' Lateral: 11.60 Patient: MICHAELLE RUVALCABA Study Date: 03/21/2017 Page 1 of 2 11:48 AM LA Volume Index: 15.0 ml/m2 RA Area: 13.8 cm2 Additional Vessels Name Value Ao Ascendin.2 cm Findings: Left Ventricle: Normal size left ventricle. Mild concentric LV hypertrophy. Normal global systolic LV function. EF is 69 %. No regional wall motion abnormality. Diastolic LV function normal for age. Right Ventricle: Normal size right ventricle. Normal RV function. Left Atrium: The left atrium is normal in size. Right Atrium: The right atrium is normal in size. Mitral Valve: The mitral valve is normal in appearance and function. Trivial to mild mitral regurgitation. No mitral stenosis is present. Aortic Valve: The aortic valve is normal in appearance and function. The aortic valve is tri-leaflet. Trivial aortic valve regurgitation. No aortic valve stenosis is present. Tricuspid Valve: The tricuspid valve is normal in appearance and function. There is no significant tricuspid valve regurgitation. Pulmonary artery pressure is not obtained due to inadequate TR jet. Pulmonic Valve: The pulmonic valve is normal in appearance and function. Aorta: The aorta is normal. Pericardium: Trivial anterior pericardial effusion. There is pericardial fat. (No Signature Object) Patient: MICHAELLE RUVALCABA Study Date: 03/21/2017 Page 2 of 2 11:48 AM [id number]
--- NOTE | 2017-03-21 17:54 | ASMTCMCOM ---
CM Note CM Note Notes: Spoke w/pt's daughter, will try and go to facilities tomorrow and make a decision, updated PT notes faxed to [facility] but [facility] did accept. Per dtr's request, CM called [facility] and left message since they have not replied. DC Plan: SNF Date Signed: 03/21/2017 05:53 PM Electronically Signed By:Zhanna Briseno RN
[2017-03-21] MEDS: MELATONIN 3 MG TAB PO SCH (19:55)
[2017-03-22] MEDS: HEPARIN 5,000 UNIT/0.5 ML SYR SC SCH ×3 (05:27→20:13)
[2017-03-22] MEDS ORDERED: POTASSIUM CL 10 MEQ TAB PO ONE (08:16)
[2017-03-22] MEDS: TAMSULOSIN HCL 0.4 MG CAP PO SCH ×2 (08:23→20:13)
[2017-03-22] MEDS: METHIMAZOLE 5 MG TAB PO SCH (08:23)
[2017-03-22] MEDS: VENLAFAXINE XR 37.5 MG CAP PO SCH (08:24)
[2017-03-22] MEDS: ASPIRIN EC 325 MG TAB PO SCH (08:24)
[2017-03-22] MEDS: MULTIVITAMINS 1 EACH TAB PO SCH (08:24)
[2017-03-22] MEDS: GEMFIBROZIL 600 MG TAB PO SCH ×2 (08:24→17:03)
[2017-03-22] MEDS: amLODIPine BESYLATE 5 MG TAB PO SCH (08:25)
[2017-03-22] MEDS: VERAPAMIL ER 120 MG TAB PO SCH (08:25)
--- NOTE | 2017-03-22 10:57 | PDIAF ---
- Diagnosis Diagnosis: ftt - Medication Management Discharge Medications: Medications to Continue on Transfer Amlodipine Besylate [Norvasc] 5 mg PO DAILY 09/20/16 [Last Taken 03/18/17] Aspirin EC [Aspirin EC 325 mg (*)] 325 mg PO DAILY 09/20/16 [Last Taken 03/18/17 ] C/E/Zn/Cu/OM3/DHA/EPA/LUT/ZEAX [Preservision Areds 2 Softgel] 1 each PO BID [Last Taken 03/18/17] Gemfibrozil [Lopid 600 MG (*)] 600 mg PO BIDAC 09/20/16 [Last Taken 03/18/17] Herbals/Supplements -Info Only 1 ea PO DAILY 09/20/16 [Last Taken 03/18/17] Loratadine 10 mg PO DAILY 09/20/16 [Last Taken 03/18/17] Methimazole [Tapazole 5MG (*)] 5 mg PO DAILY 09/20/16 [Last Taken 03/18/17] Multivitamins [Multivitamin (*)] 1 tab PO DAILY 09/20/16 [Last Taken 03/18/17] Naproxen Sodium [Aleve 220 MG (*)] 220 mg PO BID 09/20/16 [Last Taken 03/18/17] Propylene Glycol/Peg 400 [SYSTANE 0.3-0.4% EYE DROPS] 1 drop EACHEYE BID [Last Taken Unknown] Psyllium Husk (with Sugar) [Metamucil Powder] 1 tsp PO TID PRN 09/20/16 [Last Taken 03/18/17] Verapamil HCl [Verapamil Sr] 120 mg PO DAILY 09/20/16 [Last Taken 03/18/17] Tamsulosin HCl [Flomax 0.4 MG (*)] 0.4 mg PO BID 10/01/16 [Last Taken 03/18/17 21:00] Melatonin [Melatonin 3 MG (*)] 3 mg PO HS 03/19/17 [Last Taken 03/18/17] Venlafaxine Xr [Effexor Xr 37.5MG (*)] 37.5 mg PO DAILY cap 03/22/17 [Last Taken Unknown] Discharge Medications: Refer to the Discharge Home Medication list for PRN reason. PICC Care - Routine: N/A - Orders Services needed: Registered Nurse, Physical Therapy, Occupational Therapy Isolation Type: None Diet Recommendation: no restrictions on diet - Follow Up Care Current Providers and Referrals: Patient,NotPresent [Unknown] - As per Instructions
--- NOTE | 2017-03-22 11:44 | ASMTCMCOM ---
CM Note CM Note Notes: Pt's dtr toured [facility] today and chose them. JAVA J2EE APPLICATION DEVELOPER Penny ready to dc but [facility] needs to wait until Friday to get ins auth from [employer]ydney Sage. Spoke with [facility] and they will have the same elay. CM to follow. Date Signed: 03/22/2017 11:44 AM Electronically Signed By:Zuleima Womack LCSW
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
[2017-03-22] MEDS: MELATONIN 3 MG TAB PO SCH (20:13)
[2017-03-23] MEDS: HEPARIN 5,000 UNIT/0.5 ML SYR SC SCH ×3 (05:11→21:32)
[2017-03-23] MEDS: VERAPAMIL ER 120 MG TAB PO SCH (08:11)
[2017-03-23] MEDS: ASPIRIN EC 325 MG TAB PO SCH (08:11)
[2017-03-23] MEDS: MULTIVITAMINS 1 EACH TAB PO SCH (08:11)
[2017-03-23] MEDS: GEMFIBROZIL 600 MG TAB PO SCH ×2 (08:11→17:09)
[2017-03-23] MEDS: TAMSULOSIN HCL 0.4 MG CAP PO SCH ×2 (08:12→21:32)
[2017-03-23] MEDS: VENLAFAXINE XR 37.5 MG CAP PO SCH (08:12)
[2017-03-23] MEDS: METHIMAZOLE 5 MG TAB PO SCH (08:12)
[2017-03-23] MEDS: amLODIPine BESYLATE 5 MG TAB PO SCH (08:12)
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
[2017-03-23] MEDS ORDERED: POTASSIUM CL 10 MEQ TAB PO ONE ×2 (10:14→21:20)
[2017-03-23] MEDS: MELATONIN 3 MG TAB PO SCH (21:32)
[2017-03-24] MEDS: HEPARIN 5,000 UNIT/0.5 ML SYR SC SCH ×3 (04:44→21:17)
[2017-03-24] MEDS: GEMFIBROZIL 600 MG TAB PO SCH ×2 (09:30→16:55)
[2017-03-24] MEDS: MULTIVITAMINS 1 EACH TAB PO SCH (09:31)
[2017-03-24] MEDS: VERAPAMIL ER 120 MG TAB PO SCH (09:31)
[2017-03-24] MEDS: TAMSULOSIN HCL 0.4 MG CAP PO SCH ×2 (09:31→19:58)
[2017-03-24] MEDS: METHIMAZOLE 5 MG TAB PO SCH (09:31)
[2017-03-24] MEDS: ASPIRIN EC 325 MG TAB PO SCH (09:31)
[2017-03-24] MEDS: VENLAFAXINE XR 37.5 MG CAP PO SCH (09:31)
[2017-03-24] MEDS: amLODIPine BESYLATE 5 MG TAB PO SCH (09:32)
[2017-03-24] MEDS ORDERED: POTASSIUM CL 10 MEQ TAB PO ONE ×2 (10:28→19:28)
--- NOTE | 2017-03-24 15:13 | PDIAF ---
- Diagnosis Diagnosis: ftt - Medication Management Discharge Medications: Medications to Continue on Transfer Amlodipine Besylate [Norvasc] 5 mg PO DAILY 09/20/16 [Last Taken 03/18/17] Aspirin EC [Aspirin EC 325 mg (*)] 325 mg PO DAILY 09/20/16 [Last Taken 03/18/17 ] C/E/Zn/Cu/OM3/DHA/EPA/LUT/ZEAX [Preservision Areds 2 Softgel] 1 each PO BID [Last Taken 03/18/17] Gemfibrozil [Lopid 600 MG (*)] 600 mg PO BIDAC 09/20/16 [Last Taken 03/18/17] Herbals/Supplements -Info Only 1 ea PO DAILY 09/20/16 [Last Taken 03/18/17] Loratadine 10 mg PO DAILY 09/20/16 [Last Taken 03/18/17] Methimazole [Tapazole 5MG (*)] 5 mg PO DAILY 09/20/16 [Last Taken 03/18/17] Multivitamins [Multivitamin (*)] 1 tab PO DAILY 09/20/16 [Last Taken 03/18/17] Naproxen Sodium [Aleve 220 MG (*)] 220 mg PO BID 09/20/16 [Last Taken 03/18/17] Propylene Glycol/Peg 400 [SYSTANE 0.3-0.4% EYE DROPS] 1 drop EACHEYE BID [Last Taken Unknown] Psyllium Husk (with Sugar) [Metamucil Powder] 1 tsp PO TID PRN 09/20/16 [Last Taken 03/18/17] Verapamil HCl [Verapamil Sr] 120 mg PO DAILY 09/20/16 [Last Taken 03/18/17] Tamsulosin HCl [Flomax 0.4 MG (*)] 0.4 mg PO BID 10/01/16 [Last Taken 03/18/17 21:00] Melatonin [Melatonin 3 MG (*)] 3 mg PO HS 03/19/17 [Last Taken 03/18/17] Venlafaxine Xr [Effexor Xr 75MG (*)] 75 mg PO DAILY #30 cap 03/24/17 [Last Taken Unknown] Discharge Medications: Refer to the Discharge Home Medication list for PRN reason. PICC Care - Routine: N/A - Orders Services needed: Registered Nurse, Physical Therapy, Occupational Therapy Isolation Type: None Diet Recommendation: no restrictions on diet - Follow Up Care Current Providers and Referrals: Patient,NotPresent [Unknown] - As per Instructions
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
[2017-03-24] MEDS ORDERED: VENLAFAXINE HCL 37.5 MG TAB PO ONE (17:45)
[2017-03-24] MEDS: MELATONIN 3 MG TAB PO SCH (19:58)
[2017-03-25] MEDS: HEPARIN 5,000 UNIT/0.5 ML SYR SC SCH ×3 (04:56→20:39)
[2017-03-25] MEDS: ASPIRIN EC 325 MG TAB PO SCH (08:11)
[2017-03-25] MEDS: METHIMAZOLE 5 MG TAB PO SCH (08:11)
[2017-03-25] MEDS: MULTIVITAMINS 1 EACH TAB PO SCH (08:11)
[2017-03-25] MEDS: TAMSULOSIN HCL 0.4 MG CAP PO SCH ×2 (08:11→20:38)
[2017-03-25] MEDS: amLODIPine BESYLATE 5 MG TAB PO SCH (08:11)
[2017-03-25] MEDS: GEMFIBROZIL 600 MG TAB PO SCH ×2 (08:11→17:36)
[2017-03-25] MEDS: VERAPAMIL ER 120 MG TAB PO SCH (08:11)
[2017-03-25] MEDS: VENLAFAXINE XR 37.5 MG CAP PO SCH (08:12)
--- NOTE | 2017-03-25 12:09 | GDS ---
[f rep st] DISCHARGE SUMMARY DISCHARGE DIAGNOSES: 1. Adult failure to thrive. 2. Urinary retention. 3. Altered mental status. 4. Pyuria. 5. Depression. 6. Dehydration. 7. Generalized weakness. 8. Hypokalemia. PHYSICAL EXAMINATION: GENERAL: The patient is alert. VITAL SIGNS: Afebrile at 36.6, pulse 74, respir atory rate is 18, blood pressure is 115/57, he is saturating 98% on room air. I have seen and evaluat ed the patient on the day of discharge. HOSPITAL COURSE: The patient is an 86-year-old male, presents to the emergency room with complaints of generalized weakness. He was evaluated and diagnosed with: 1. Altered mental status. This is multifactorial and has resolved throughout this hospitalization. 2. Pyuria. The patient had a urine culture that demonstrated no growth. No further treatment was ind icated. 3. Overall failure to thrive. He is improving with regard to this condition and will continue therap ies in the outpatient setting. 4. Acute urinary retention. Flomax has been initiated, as well as a Singer catheter. He will follow u p in the outpatient setting with Urology of his choice. 5. Depression. The patient has been started on Effexor during this hospitalization. He is tolerating this well. It is recommended that he be increased to 75 mg daily with a goal of 150-300 mg daily. Th is does seem to be helping. The patient was in good spirits prior to disposition today recommend cont inuation of his Effexor. 6. Dehydration. This has resolved. 7. Generalized weakness. This is improving, but still requires physical therapy and occupational the rapy. 8. Hypokalemia. This is replaced. 9. Disposition. The patient will be discharged to [facility] facility for further rehabilitatio n and management. He requires increased strength and conditioning. There are no pending studies. Foll owup will be with the urologist of his choice, as well as primary care physician. Again, it is recomm ended that his Effexor be increased to 75 mg daily with a goal of 150-300 mg daily. I spent greater than 35 minutes in the care, coordination, and management of this patient's dispositi on. /[id number]/MODL
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
[2017-03-25] MEDS: MELATONIN 3 MG TAB PO SCH (20:38)
[2017-03-26 05:30] LABS: PLATELET COUNT 304 10^3/uL (150-400)
[2017-03-26] MEDS: HEPARIN 5,000 UNIT/0.5 ML SYR SC SCH ×3 (06:13→21:38)
[2017-03-26] MEDS ORDERED: POTASSIUM CL 10 MEQ TAB PO ONE (08:28)
[2017-03-26] MEDS: GEMFIBROZIL 600 MG TAB PO SCH ×2 (08:32→17:39)
[2017-03-26] MEDS: ASPIRIN EC 325 MG TAB PO SCH (08:32)
[2017-03-26] MEDS: amLODIPine BESYLATE 5 MG TAB PO SCH (08:32)
[2017-03-26] MEDS: TAMSULOSIN HCL 0.4 MG CAP PO SCH ×2 (08:32→21:38)
[2017-03-26] MEDS: VENLAFAXINE XR 37.5 MG CAP PO SCH (08:32)
[2017-03-26] MEDS: MULTIVITAMINS 1 EACH TAB PO SCH (08:32)
[2017-03-26] MEDS: METHIMAZOLE 5 MG TAB PO SCH (08:32)
[2017-03-26] MEDS: VERAPAMIL ER 120 MG TAB PO SCH (08:32)
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
[2017-03-26] MEDS ORDERED: POLYETHYLENE GLYCOL 3350 17 GM PKT PO PRN (15:21)
[2017-03-26] MEDS ORDERED: MAGNESIUM HYDROXIDE 30 ML UDCUP PO PRN (15:21)
[2017-03-26] MEDS ORDERED: LACTULOSE 20 GM/30 ML UDCUP PO PRN (15:21)
[2017-03-26] MEDS ORDERED: BISACODYL 10 MG SUPP PR PRN (15:21)
--- NOTE | 2017-03-26 16:31 | ASMTCMCOM ---
CM Note CM Note Notes: CM met w/ daughter and pt for dispo planning. CM spoke w/ Sandra at [facility] and she reports that insurance denied pt auth. There will need to be a peer to peer review. CM notified Sis Del Valle NP about this. She will complete peer to peer review. CM to follow. Plan: [facility] Date Signed: 03/26/2017 04:31 PM Electronically Signed By:TIA Reveles
[2017-03-26] MEDS: SENNOSIDES/DOCUSATE SODIUM TAB PO SCH (21:38)
[2017-03-26] MEDS: MELATONIN 3 MG TAB PO SCH (21:38)
[2017-03-27] MEDS: HEPARIN 5,000 UNIT/0.5 ML SYR SC SCH ×2 (06:39→13:55)
[2017-03-27] MEDS: METHIMAZOLE 5 MG TAB PO SCH (08:25)
[2017-03-27] MEDS: SENNOSIDES/DOCUSATE SODIUM TAB PO SCH (08:25)
[2017-03-27] MEDS: VENLAFAXINE XR 37.5 MG CAP PO SCH (08:26)
[2017-03-27] MEDS: TAMSULOSIN HCL 0.4 MG CAP PO SCH (08:26)
[2017-03-27] MEDS: ASPIRIN EC 325 MG TAB PO SCH (08:26)
[2017-03-27] MEDS: amLODIPine BESYLATE 5 MG TAB PO SCH (08:26)
[2017-03-27] MEDS: GEMFIBROZIL 600 MG TAB PO SCH ×2 (08:26→16:45)
[2017-03-27] MEDS: MULTIVITAMINS 1 EACH TAB PO SCH (08:26)
[2017-03-27] MEDS: VERAPAMIL ER 120 MG TAB PO SCH (08:31)
[2017-03-27 11:19] VITALS: O2SAT 92
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
--- NOTE | 2017-03-27 15:20 | PDIAF ---
- Diagnosis Diagnosis: AMS, FTT, weakness, urinary retention, depression Code Status: Full Code - Medication Management Discharge Medications: Medications to Continue on Transfer Amlodipine Besylate [Norvasc] 5 mg PO DAILY 09/20/16 [Last Taken 03/18/17] Aspirin EC [Aspirin EC 325 mg (*)] 325 mg PO DAILY 09/20/16 [Last Taken 03/18/17 ] C/E/Zn/Cu/OM3/DHA/EPA/LUT/ZEAX [Preservision Areds 2 Softgel] 1 each PO BID [Last Taken 03/18/17] Gemfibrozil [Lopid 600 MG (*)] 600 mg PO BIDAC 09/20/16 [Last Taken 03/18/17] Herbals/Supplements -Info Only 1 ea PO DAILY 09/20/16 [Last Taken 03/18/17] Loratadine 10 mg PO DAILY 09/20/16 [Last Taken 03/18/17] Methimazole [Tapazole 5MG (*)] 5 mg PO DAILY 09/20/16 [Last Taken 03/18/17] Multivitamins [Multivitamin (*)] 1 tab PO DAILY 09/20/16 [Last Taken 03/18/17] Naproxen Sodium [Aleve 220 MG (*)] 220 mg PO BID 09/20/16 [Last Taken 03/18/17] Propylene Glycol/Peg 400 [SYSTANE 0.3-0.4% EYE DROPS] 1 drop EACHEYE BID [Last Taken Unknown] Psyllium Husk (with Sugar) [Metamucil Powder] 1 tsp PO TID PRN 09/20/16 [Last Taken 03/18/17] Verapamil HCl [Verapamil Sr] 120 mg PO DAILY 09/20/16 [Last Taken 03/18/17] Tamsulosin HCl [Flomax 0.4 MG (*)] 0.4 mg PO BID 10/01/16 [Last Taken 03/18/17 21:00] Melatonin [Melatonin 3 MG (*)] 3 mg PO HS 03/19/17 [Last Taken 03/18/17] Venlafaxine Xr [Effexor Xr 75MG (*)] 75 mg PO DAILY #30 cap 03/24/17 [Last Taken Unknown] Sennosides/Docusate Sodium [Senokot-S] 1 - 2 tab PO BID tab 03/27/17 [Last Taken Unknown] Discharge Medications: Refer to the Discharge Home Medication list for PRN reason. PICC Care - Routine: N/A - Orders Services needed: Registered Nurse, Physical Therapy, Occupational Therapy Isolation Type: None Diet Recommendation: no restrictions on diet Diet Texture: Regular Texture Diet Singer: Yes Additional: patient has significant urinary retention/needs to see urology sooner than later. Also, Effexor is a new medication for him. This can be titrated up at SNF or by his PCP, Dr Kline. - Follow Up Care Current Providers and Referrals: Harris Pleitez MD [Medical Doctor] - Patient,NotPresent [Unknown] - As per Instructions Brian Kline MD [Primary Care Provider] -
[2017-03-27 15:34] VITALS: BP 143/74; PULSE 67; RESP 16; TEMP 98.9
--- NOTE | 2017-03-27 15:35 | ASMTCMCOM ---
CM Note CM Note Notes: Hospitalist spoke with patients insuranc co, and they have approved pt for rehab. Zoie at [facility] notified, pt will dc today. Daughter Jeanette made aware. Date Signed: 03/27/2017 03:35 PM Electronically Signed By:Zhanna Briseno RN
--- NOTE | 2017-03-27 17:05 | PDDCSUM ---
Discharge Summary Discharge Summary: Please see discharge summary per Nurse Practitioner, Penny Chavez on 03/24/17. Patient was discharged in stable condition to rehab for strengthening and addressing his health conditions. He had an extended hospital stay awaiting evaluation and authorization for [facility].
--- NOTE | 2017-03-27 17:26 | ASDISCHSUM ---
Discharge Information Plan Status:SNF Medically Cleared to Leave: Discharge Date:03/27/2017 05:20 PM CM D/C Disposition:Residential Facility ADT D/C Disposition:Residential Facility Projected Discharge Date:03/27/2017 04:00 PM Transportation at D/C:Wheelchair Van Discharge Delay Reason: Follow-Up Date:03/27/2017 04:00 PM Discharge Slot: Final Diagnosis: Placement Information Referral Type:*Jail/SNF Referral ID:[id number] Provider Name:[facility] Address 1:[address] Address 2: City:[place] Selection Factors: State:[place] Patient Contact Information Contact Name:JAMAICA Relationship:Daughter Address:[address] Home Phone: City:[place] Alternate Phone: State/Zip Code:[place] [address] Email: Financial Information Financial Class:Medicare Advantage Plans Primary Plan Desc:[employer]IMMY[place] MEDICARE ADV Primary Plan Number:[id number] Secondary Plan Desc: Secondary Plan Number: Assessment Information [facility] CM Progress Note CM Note CM Note Notes: Pt admitted w/weakness and confusion, possible UTI. PT recommending SNF at this time. Met w/pt's dtr, Jeanette, who was open to this. She said her Dad was somewhat confused at this time and may be resistant to this initially but she feels he will most likely need SNF rehab as well. Jeanette said that pt did SNF stay at [facility] last September which they "were not thrilled with". We talked about other facilites. Referrals sent to [facility], [facility] and [facility] all of which are contracted w/[facility]. Also sent referral to [facility] per pt's dtr's request to see what options are for going there, left voicemail for Keagan at . Private duty list given to dtr as she looks ahead and sees that he is going to be requiring more care if he goes back home after SNF stay. CM w/f. Date Signed: 03/20/2017 04:05 PM Electronically Signed By:Criss Castellano RN [facility] CM Progress Note CM Note CM Note Notes: Spoke w/pt's daughter, will try and go to facilities tomorrow and make a decision, updated PT notes faxed to [facility] but did accept. Per dtr's request, CM called [facility] and left message since they have not replied. DC Plan: SNF Date Signed: 03/21/2017 05:53 PM Electronically Signed By:Zhanna Briseno RN [facility] CM Progress Note CM Note CM Note Notes: Pt's dtr toured [facility] today and chose them. CARMENZA Francis ready to dc but [facility] needs to wait until Friday to get ins auth from [facility]. Spoke with Milankriss Maradiaga and they will have the same elay. CM to follow. Date Signed: 03/22/2017 11:44 AM Electronically Signed By:Zuleima Womack LCSW [facility] CM Progress Note CM Note CM Note Notes: CM met w/ daughter and pt for dispo planning. CM spoke w/ Sandra at [facility] and she reports that insurance denied pt auth. There will need to be a peer to peer review. CM notified Sis Del Valle NP about this. She will complete peer to peer review. CM to follow. Plan: [facility] Date Signed: 03/26/2017 04:31 PM Electronically Signed By:TIA Reveles [facility] Progress Note CM Note LILIANE Note Notes: Hospitalist spoke with patients banner, and they have approved pt for rehab. Zoie at [facility] notified, pt will dc today. Daughter Jeanette made aware. Date Signed: 03/27/2017 03:35 PM Electronically Signed By:Zhanna Briseno RN Case Management Discharge Plan Note Case Management Discharge Discharge Order Complete? Answers: Yes Patient to Obtain Answers: Other Notes: [facility] Rehab Medications Transportation Arranged Answers: Other Notes: [facility] Transport will Pick (Date 03/27/2017 05:00 PM & Time) Faxed Final Orders Answers: Yes Family Notified Answers: Yes Discharge Comments Notes: D/w hospitalist, final orders faxed. Zoie at [facility] notified, SONIA to call report. Date Signed: 03/27/2017 04:49 PM Electronically Signed By:Zhanna Briseno RN Intervention Information Intervention Type:*IM-Signed Date of Service:03/24/2017 11:54 AM Patient Type:Inpatient Staff Member:Kelly Avelar Hours: Discipline: Severity: Comment:
--- NOTE | 2017-04-02 11:31 | PQFORM ---
PHYSICIAN QUERY FORM Needs Your Response This query form is being sent to you to assure this patient record is coded properly. 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 Avalos, The H&P dated 03/20/17, as well as the progress notes beginning with date state the diagnosis of acute kidney injury. Would TING be appropriate as an additional diagnosis on the discharge summary? Yes No ____x i didn't dc emmanuelle did_ Other Clinically Undetermined Many thanks, HILDA Yanez [facility]/Coding Department W: [phone] INSTRUCTIONS FOR RESPONSE: Answer question by clicking on the "Edit Document" button. Move cursor to area below the stars. When complete, hit "Save." Click on the "Sign" button, then click "Sign" again. Type in your PIN and hit "Enter." MTDD
--- NOTE | 2017-04-03 10:07 | PQFORM ---
PHYSICIAN QUERY FORM Needs Your Response This query form is being sent to you to assure this patient record is coded properly. Please respond to the question below: MINERAL RESOURCES INSPECTOR QUESTION: Ms. Del Valle, The H&P dated 03/20/17, as well as the progress notes beginning with date state the diagnosis of acute kidney injury. Would TING be appropriate as an additional diagnosis on the discharge summary? Yes No Other Clinically Undetermined Many thanks, HILDA Yanez [facility]/Coding Department W: [phone] INSTRUCTIONS FOR RESPONSE: yes Answer question by clicking on the "Edit Document" button. Move cursor to area below the stars. When complete, hit "Save." Click on the "Sign" button, then click "Sign" again. Type in your PIN and hit "Enter." MTDD
== END 2017-03-27 17:20 | DRG 683 ==
LOC: EDBD → EDUNIT# → F3E 22:10 → OBSVTOIN 03-20 12:30
PROVIDERS: ADMIT Internal Medicine; ATTEND Internal Medicine
DX: N17.9 Acute kidney failure, unspecified (principal); E86.0 Dehydration; R53.1 Weakness; R41.82 Altered mental status, unspecified; R65.10 Systemic inflammatory response syndrome (SIRS) of non-infectious origin without acute organ dysfunction; F32.9 Major depressive disorder, single episode, unspecified; F03.90 Unspecified dementia, unspecified severity, without behavioral disturbance, psychotic disturbance, mood disturbance, and anxiety; N40.1 Benign prostatic hyperplasia with lower urinary tract symptoms; R33.9 Retention of urine, unspecified; E87.6 Hypokalemia; R82.71 Bacteriuria; I10 Essential (primary) hypertension; E05.90 Thyrotoxicosis, unspecified without thyrotoxic crisis or storm; E78.5 Hyperlipidemia, unspecified; I25.10 Atherosclerotic heart disease of native coronary artery without angina pectoris; Z95.5 Presence of coronary angioplasty implant and graft; Z85.46 Personal history of malignant neoplasm of prostate; Z92.3 Personal history of irradiation; Z85.72 Personal history of non-Hodgkin lymphomas; Z85.820 Personal history of malignant melanoma of skin
CPT/HCPCS: 96365; 97116-GP; 97163-GP; 97166-GO; 97530-GO; 97535-GO; G0378; G8987-GO-CK; G8988-GO-CJ; J0696

== ENCOUNTER 2017-04-21 06:09 | Emergency (ER) | payer OTHER ==
[2017-04-21] MEDS ORDERED: NS 500 ML IV ONE (06:11)
--- NOTE | 2017-04-21 06:18 | CPEKG ---
Heart Rate: 77 RR Interval: 779 P-R Interval: 196 QRSD Interval: 98 QT Interval: 396 QTC Interval: 449 P [place]: 61 QRS [place]: -54 T Wave [place]: 67 EKG Severity - ABNORMAL ECG - EKG Impression: SINUS RHYTHM EKG Impression: ATRIAL PREMATURE COMPLEX EKG Impression: LEFT ANTERIOR FASCICULAR BLOCK EKG Impression: BORDERLINE T ABNORMALITIES, ANT-LAT LEADS Electronically Signed By: Zak Lawrence 21-Apr-2017 07:30:00
--- NOTE | 2017-04-21 06:19 | EDPHY ---
H & P HPI/ROS: HPI CHIEF COMPLAINT: Fall, scalp hematoma HISTORY OF PRESENT ILLNESS: Patient 86-year-old male, he has a history of dementia, hypertension, hyperlipidemia, AFib, BPH, prostate cancer, presents to the emergency room by EMS after he had unwitnessed fall at his nursing facility at [facility]. Patient presents emergency room he has a hematoma to the posterior occiput. He appears confused. Unclear if this is baseline. He reports to me he has no pain anywhere. Denies chest pain or shortness of breath. He is unsure exactly what happened. He does not even recall that he fell. Patient tells me that it is 1982. Patient is in a cervical collar. Denies midline cervical spine pain. Has obvious hematoma on the posterior scalp. I do not see any blood thinners on his med list. This was unwitnessed fall. Past Medical History: Dementia, hypertension, hyperlipidemia, AFib, BPH. Past Surgical History: No recent surgery Social History: Resides at [facility]. Family History: Noncontributory ROS REVIEW OF SYSTEMS: A comprehensive 10 point review of systems is otherwise negative aside from elements mentioned in the history of present illness. Exam Constitutional appears well nontoxic triage nursing summary reviewed, vital signs reviewed, awake/alert. Eyes normal conjunctivae and sclera, EOMI, PERRLA. HENT head/neck in rigid cervical collar placed by EMS. Posterior occiput hematoma present. Otherwise atraumatic. moist mucus membranes, no epistaxis, neck supple/ no meningismus, no raccoon eyes. Respiratory clear to auscultation bilaterally, normal breath sounds, no respiratory distress, no wheezing. Cardiovascular rate normal, regular rhythm, no murmur, no edema, distal pulses normal. Gastrointestinal soft, non-tender, no rebound, no guarding, normal bowel sounds, no distension, no pulsatile mass. Genitourinary no CVA tenderness. Musculoskeletal no midline vertebral tenderness, full range of motion, no calf swelling, no tenderness of extremities, no meningismus, good pulses, neurovascularly intact. Skin pink, warm, & dry, no rash, skin atraumatic. Neurologic alert and oriented x1., moves all 4 extremities equally, motor intact, sensory intact, CN II-XII intact, normal cerebellar, normal vision, normal speech. Psychiatric normal mood/affect. Heme/Lymph/Immune no lymphadenopathy. Differential Diagnosis: Includes but is not limited to in a particular order syncope, cardiac arrhythmia, fall, intracranial bleed, skull fracture, closed head injury, scalp hematoma, dementia, infection Medical Decision Making: Plan for this patient CT head without contrast rule out trauma, check basic blood work including troponin, EKG, IV establishment IV fluid bolus, and re- evaluate. Re-evaluation: EKG interpretation by me on record in Motility Count system. Impression time of EKG 6:16 a.m., this is sinus rhythm left anterior fascicular block present. I do not appreciate acute ischemia. Subtle T-wave abnormality V1 V2. Patient CT scan of the head and neck did not show any acute traumatic intracranial or cervical spine injury. Called to me by Dr. Mckeon. Patient does noted to have a scalp hematoma. No overlying laceration. Additionally incidentally found on the CT cervical spine the T-spine showed an age indeterminate high thoracic spine fracture however patient does not have any pain here. No tenderness to palpation. Blood work reviewed, additionally EKG reviewed. Discussed at length with daughter at bedside. She is comfortable with him going back to his living facility. Is unclear caused him to fall. There is no evidence of intracranial bleed or cardiac arrhythmia or cardiac event at this time. Patient has no complaints at this time. Source: Patient, EMS - Medical/Surgical History Hx Asthma: No Hx Chronic Respiratory Disease: No Hx Diabetes: No Hx Cardiac Disease: No Hx Renal Disease: No Hx Cirrhosis: No Hx Alcoholism: No Hx HIV/AIDS: No Hx Splenectomy or Spleen Trauma: No Other PMH: lymphom,, prostate CA, HTN, BACK ISSUES, dementia, UTi - Social History Smoking Status: Never smoked Constitutional: Initial Vital Signs Temperature (C) 37.4 C 04/21/17 06:12 Heart Rate 75 04/21/17 06:12 Respiratory Rate 20 04/21/17 06:12 Blood Pressure 188/108 H 04/21/17 06:12 O2 Sat (%) 96 04/21/17 06:12 O2 Delivery Mode Room Air Allergies/Adverse Reactions: atorvastatin [From Lipitor] Allergy (Verified 04/21/17 06:12) penicillin G Allergy (Verified 04/21/17 06:12) Sulfa (Sulfonamide Antibiotics) Allergy (Verified 04/21/17 06:12) Other-Enter Comments IV contrast Allergy (Uncoded 04/21/17 06:12) Other-Enter Comments Home Medications: Medication Instructions Recorded Amlodipine Besylate [Norvasc] 5 mg PO DAILY 09/20/16 Aspirin EC [Aspirin EC 325 mg (*)] 325 mg PO DAILY 09/20/16 C/E/Zn/Cu/OM3/DHA/EPA/LUT/ZEAX 1 each PO BID 09/20/16 [Preservision Areds 2 Softgel] Gemfibrozil [Lopid 600 MG (*)] 600 mg PO BIDAC 09/20/16 Herbals/Supplements -Info Only 1 ea PO DAILY 09/20/16 Loratadine 10 mg PO DAILY 09/20/16 Methimazole [Tapazole 5MG (*)] 5 mg PO DAILY 09/20/16 Multivitamins [Multivitamin (*)] 1 tab PO DAILY 09/20/16 Naproxen Sodium [Aleve 220 MG (*)] 220 mg PO BID 09/20/16 Propylene Glycol/Peg 400 [SYSTANE 1 drop EACHEYE BID 09/20/16 0.3-0.4% EYE DROPS] Psyllium Husk (with Sugar) 1 tsp PO TID PRN 09/20/16 [Metamucil Powder] Verapamil HCl [Verapamil Sr] 120 mg PO DAILY 09/20/16 Tamsulosin HCl [Flomax 0.4 MG (*)] 0.4 mg PO BID 10/01/16 Melatonin [Melatonin 3 MG (*)] 3 mg PO HS 03/19/17 Venlafaxine Xr [Effexor Xr 75MG 75 mg PO DAILY #30 cap 03/24/17 (*)] Sennosides/Docusate Sodium 1 - 2 tab PO BID tab 03/27/17 [Senokot-S] Medical Decision Making - Data Points Laboratory Results: Laboratory Results 04/21/17 06:15 04/21/17 06:15 04/21/17 04/21/17 04/21/17 06:15 06:15 06:15 WBC 9.53 10^3/uL H 10^3/uL (3.80-9.50) RBC 4.09 10^6/uL L 10^6/uL (4.40-6.38) Hgb 12.0 g/dL L g/dL (13.7-17.5) Hct 35.8 % L % (40.0-51.0) MCV 87.5 fL fL (81.5-99.8) MCH 29.3 pg pg (27.9-34.1) MCHC 33.5 g/dL g/dL (32.4-36.7) RDW 14.7 % % (11.5-15.2) Plt Count 331 10^3/uL 10^3/uL (150-400) MPV 9.3 fL fL (8.7-11.7) Neut % (Auto) 64.1 % % (39.3-74.2) Lymph % (Auto) 21.5 % % (15.0-45.0) [place] % (Auto) 8.7 % % (4.5-13.0) Eos % (Auto) 4.4 % % (0.6-7.6) Baso % (Auto) 0.4 % % (0.3-1.7) Nucleat RBC Rel Count 0.0 % % (0.0-0.2) Absolute Neuts (auto) 6.10 10^3/uL 10^3/uL (1.70-6.50) Absolute Lymphs (auto) 2.05 10^3/uL 10^3/uL (1.00-3.00) Absolute Monos (auto) 0.83 10^3/uL H 10^3/uL (0.30-0.80) Absolute Eos (auto) 0.42 10^3/uL H 10^3/uL (0.03-0.40) Absolute Basos (auto) 0.04 10^3/uL 10^3/uL (0.02-0.10) Absolute Nucleated RBC 0.00 10^3/uL 10^3/uL (0-0.01) Immature Gran % 0.9 % % (0.0-1.1) Immature Gran # 0.09 10^3/uL 10^3/uL (0.00-0.10) PT 13.9 SEC SEC (12.0-15.0) INR 1.05 (0.83-1.16) APTT 30.9 SEC SEC (23.0-38.0) Sodium 145 mEq/L mEq/L (135-145) Potassium 4.5 mEq/L mEq/L (3.5-5.2) Chloride 106 mEq/L mEq/L (97-110) Carbon Dioxide 23 mEq/l mEq/l (22-31) Anion Gap 16 mEq/L mEq/L (8-16) BUN 19 mg/dL mg/dL (7-23) Creatinine 1.7 mg/dL H mg/dL (0.7-1.3) Estimated GFR 38 Glucose 108 mg/dL H mg/dL (70-100) Calcium 9.5 mg/dL mg/dL (8.5-10.4) Magnesium 2.4 mg/dL H mg/dL (1.6-2.3) Total Bilirubin 0.5 mg/dL mg/dL (0.1-1.4) Conjugated Bilirubin 0.4 mg/dL mg/dL (0.0-0.5) Unconjugated Bilirubin 0.1 mg/dL mg/dL (0.0-1.1) AST 25 IU/L IU/L (17-59) ALT 21 IU/L IU/L (21-72) Alkaline Phosphatase 166 IU/L H IU/L (38-126) Creatine Kinase 217 IU/L IU/L (0-224) CK-MB (CK-2) Fraction 4.41 ng/mL H ng/mL (0.00-3.19) CK-MB (CK-2) % 2.0 % % (0.0-4.0) Creatine Kinase Interp NEGATIVE (NEGATIVE) Troponin I < 0.012 ng/mL ng/mL (0.000-0.034) NT-Pro-B Natriuret Pep 269 pg/mL pg/mL (0-450) Total Protein 6.9 g/dL g/dL (6.3-8.2) Albumin 4.0 g/dL g/dL (3.5-5.0) Medications Given: Discontinued Medications Sodium Chloride (Ns) 500 mls @ 1,000 mls/hr IV EDNOW ONE PRN Reason: Protocol Stop: 04/21/17 06:40 Last Admin: 04/21/17 06:21 Dose: 500 mls Departure - Departure Disposition: Home, Routine, Self-Care Clinical Impression: Fall Qualifiers: Encounter type: initial encounter Qualified Code(s): W19.XXXA - Unspecified fall, initial encounter Scalp hematoma Qualifiers: Encounter type: initial encounter Qualified Code(s): S00.03XA - Contusion of scalp, initial encounter Condition: Fair Instructions: Fall Prevention for Older Adults (ED), Hematoma (ED) Additional Instructions: 1. Return emergency room if there is any worsening symptoms questions or concerns. Referrals: Patient,NotPresent [Unknown] - As per Instructions
[2017-04-21 06:25] LABS: PLATELET COUNT 331 10^3/uL (150-400)
[2017-04-21 06:28] VITALS: BP 188/108; PULSE 75; RESP 20; TEMP 99.3; O2SAT 96
[2017-04-21 06:37] LABS: INR 1.05 (0.83-1.16); PROTIME(PATIENT) 13.9 SEC (12.0-15.0)
[2017-04-21 06:44] LABS: CREATINE KINASE 217 IU/L (0-224)
== END 2017-04-21 08:22 | disposition home or self-care (01) ==
LOC: EDUNIT#
DX: S00.03XA Contusion of scalp, initial encounter (principal); I10 Essential (primary) hypertension; E86.9 Volume depletion, unspecified; Z85.46 Personal history of malignant neoplasm of prostate; Z79.82 Long term (current) use of aspirin; W19.XXXA Unspecified fall, initial encounter
CPT/HCPCS: G0390

== ENCOUNTER 2017-05-11 12:42 | Emergency (ER) | payer OTHER ==
[2017-05-11 14:42] VITALS: RESP 20; TEMP 97.5
--- NOTE | 2017-05-11 15:57 | EDPHY ---
H & P Stated Complaint: fall hit r side of head/daughter says pt is at baseline mentally Time Seen by Provider: 05/11/17 14:48 HPI/ROS: Chief Complaint: Fall, head injury HPI: 86-year-old male had a mechanical fall in the bathroom today. Patient had a similar fall couple weeks ago and was evaluated. He was sent in from his assisted living for evaluation of head head injury. Patient has a history of being unsteady on his feet but is refusing to use his walker. He is here with his daughter. Daughter says that they are exploring higher levels of care but the patient is resistant to this. He denies headache. No nausea or vomiting. Did not have a loss of consciousness. Remembers falling. Per his daughter he is in his normal state health. He is acting normally. No neck pain. No numbness or tingling. He is currently without complaint. ROS: 10 point Review of Systems is negative except as noted in the HPI. Family History: non-contributory Physical Exam: Gen: Awake, Alert, Airway Intact HEENT: Head: Patient has a old healing hematoma on the occiput foot within healing overlying abrasion. He has a new right parietal mild hematoma with no tenderness or step-offs. Eyes: PERRLA, EOMI Nose: No epistaxis Mouth: Normal dentition, Airway patent Face: No deformity Neck: non-tender, no stepoff, Full ROM without pain Chest: non-tender, lungs CTA Heart: normal heart tones Abd: soft, non-tender, atraumatic Pelvis: non-tender, stable to AP and Lateral compression Back: atraumatic, no midline tenderness Ext: atramatic, full ROM Skin: no rash Neuro: CN II-XII intact, Strength 5/5 in all extremities, sensation intact in all extremities - Personal History Current Tetanus/Diphtheria Vaccine: Yes - Medical/Surgical History Hx Asthma: No Hx Chronic Respiratory Disease: No Hx Diabetes: No Hx Cardiac Disease: No Hx Renal Disease: No Hx Cirrhosis: No Hx Alcoholism: No Hx HIV/AIDS: No Hx Splenectomy or Spleen Trauma: No Other PMH: lymphom,, prostate CA, HTN, BACK ISSUES, dementia, UTi - Social History Smoking Status: Never smoked Constitutional: Initial Vital Signs Temperature (C) 36.7 C 05/11/17 12:52 Heart Rate 65 02/04/18 12:52 Respiratory Rate 16 05/11/17 12:52 Blood Pressure 149/79 H 05/11/17 12:52 O2 Sat (%) 94 05/11/17 12:52 O2 Delivery Mode Room Air Allergies/Adverse Reactions: atorvastatin [From Lipitor] Allergy (Verified 05/11/17 12:50) penicillin G Allergy (Verified 05/11/17 12:50) Sulfa (Sulfonamide Antibiotics) Allergy (Verified 05/11/17 12:50) Other-Enter Comments IV contrast Allergy (Uncoded 04/21/17 06:12) Other-Enter Comments Home Medications: Medication Instructions Recorded Amlodipine Besylate [Norvasc] 5 mg PO DAILY 09/20/16 Aspirin EC [Aspirin EC 325 mg (*)] 325 mg PO DAILY 09/20/16 C/E/Zn/Cu/OM3/DHA/EPA/LUT/ZEAX 1 each PO BID 09/20/16 [Preservision Areds 2 Softgel] Gemfibrozil [Lopid 600 MG (*)] 600 mg PO BIDAC 09/20/16 Herbals/Supplements -Info Only 1 ea PO DAILY 09/20/16 Loratadine 10 mg PO DAILY 09/20/16 Methimazole [Tapazole 5MG (*)] 5 mg PO DAILY 09/20/16 Multivitamins [Multivitamin (*)] 1 tab PO DAILY 09/20/16 Naproxen Sodium [Aleve 220 MG (*)] 220 mg PO BID 09/20/16 Propylene Glycol/Peg 400 [SYSTANE 1 drop EACHEYE BID 09/20/16 0.3-0.4% EYE DROPS] Psyllium Husk (with Sugar) 1 tsp PO TID PRN 09/20/16 [Metamucil Powder] Verapamil HCl [Verapamil Sr] 120 mg PO DAILY 09/20/16 Tamsulosin HCl [Flomax 0.4 MG (*)] 0.4 mg PO BID 10/01/16 Melatonin [Melatonin 3 MG (*)] 3 mg PO HS 03/19/17 Venlafaxine Xr [Effexor Xr 75MG 75 mg PO DAILY #30 cap 03/24/17 (*)] Sennosides/Docusate Sodium 1 - 2 tab PO BID tab 03/27/17 [Senokot-S] Medical Decision Making - Diagnostics Imaging Results: CT scan of the head is negative per Dr. Sapp. Imaging: Discussed imaging studies w/ chief internal auditor Radiologist ED Course/Re-evaluation: 86-year-old male status post fall with head injury. Patient did not have a syncopal episode. The fall was mechanical in nature. He is in his normal mentation at this time. CT scan of the head is negative. Family is working to encourage him to use his walker and are looking for higher levels of care for him. He will go home with his daughter. Follow up with his primary care physician as needed. Departure - Departure Disposition: Home, Routine, Self-Care Clinical Impression: Fall, Head injury Condition: Good Instructions: Head Injury (ED), Fall Prevention (ED) Additional Instructions: Follow up with primary care doctor in 2-3 days for further evaluation. Return to the emergency department for increasing headache, nausea or vomiting, worsening confusion, or any other concerns. Referrals: Brian Kline MD [Primary Care Provider] - As per Instructions
[2017-05-11 16:06] VITALS: BP 163/88; PULSE 71; O2SAT 94
--- NOTE | 2017-05-11 18:17 | ASDISCHSUM ---
Discharge Information Plan Status:Assisted Living Medically Cleared to Leave: Discharge Date:05/11/2017 04:26 PM D/C Disposition:Assisted Living ADT D/C Disposition:Home, Routine, Self-Care Projected Discharge Date:05/11/2017 04:26 PM Transportation at D/C:Family Discharge Delay Reason: Follow-Up Date:05/11/2017 04:26 PM Discharge Slot: Final Diagnosis: Placement Information Patient Contact Information Contact Name:JAMAICA Relationship:Daughter Address:[address] Home Phone: City:[place] Alternate Phone: State/Zip Code:[place] [address] Email: Financial Information Financial Class:Medicare Advantage Plans Primary Plan Desc:[employer] ADV Primary Plan Number:[id number] Secondary Plan Desc: Secondary Plan Number: Assessment Information LACE LACE Acuity / Level of Answers: No Care: Did the patient have an inpatient admission? Comorbidities - select Answers: Dementia all that apply History of falls Other # of Emergency department Answers: 3-4 visits in the last 6 months Score: 10 Date Signed: 05/11/2017 06:16 PM Electronically Signed By:Danii Pino RN Intervention Information
== END 2017-05-11 16:26 | disposition home or self-care (01) ==
DX: S09.90XA Unspecified injury of head, initial encounter (principal); I10 Essential (primary) hypertension; Z79.82 Long term (current) use of aspirin; Z85.46 Personal history of malignant neoplasm of prostate; W01.198A Fall on same level from slipping, tripping and stumbling with subsequent striking against other object, initial encounter; Y92.002 Bathroom of unspecified non-institutional (private) residence as the place of occurrence of the external cause

== ENCOUNTER 2017-06-22 06:53 | Inpatient (IN) | payer OTHER ==
--- NOTE | 2017-06-22 07:01 | EDPHY ---
H & P Time Seen by Provider: 06/22/17 06:54 - Medical/Surgical History Hx Asthma: No Hx Chronic Respiratory Disease: No Hx Diabetes: No Hx Cardiac Disease: No Hx Renal Disease: No Hx Cirrhosis: No Hx Alcoholism: No Hx HIV/AIDS: No Hx Splenectomy or Spleen Trauma: No Other PMH: lymphom,, prostate CA, HTN, BACK ISSUES, dementia, UTi - Social History Smoking Status: Never smoked Constitutional: Initial Vital Signs Temperature (C) 36.6 C 06/22/17 06:57 Heart Rate 76 06/22/17 06:57 Respiratory Rate 18 06/22/17 06:57 Blood Pressure 184/85 H 06/22/17 06:57 O2 Sat (%) 95 06/22/17 06:57 O2 Delivery Mode Room Air Allergies/Adverse Reactions: atorvastatin [From Lipitor] Allergy (Verified 05/11/17 12:50) penicillin G Allergy (Verified 05/11/17 12:50) Sulfa (Sulfonamide Antibiotics) Allergy (Verified 05/11/17 12:50) Other-Enter Comments IV contrast Allergy (Uncoded 04/21/17 06:12) Other-Enter Comments Home Medications: Medication Instructions Recorded Amlodipine Besylate [Norvasc] 5 mg PO DAILY 09/20/16 Aspirin EC [Aspirin EC 325 mg (*)] 325 mg PO DAILY 09/20/16 C/E/Zn/Cu/OM3/DHA/EPA/LUT/ZEAX 1 each PO BID 09/20/16 [Preservision Areds 2 Softgel] Gemfibrozil [Lopid 600 MG (*)] 600 mg PO BIDAC 09/20/16 Herbals/Supplements -Info Only 1 ea PO DAILY 09/20/16 Loratadine 10 mg PO DAILY 09/20/16 Methimazole [Tapazole 5MG (*)] 5 mg PO DAILY 09/20/16 Multivitamins [Multivitamin (*)] 1 tab PO DAILY 09/20/16 Naproxen Sodium [Aleve 220 MG (*)] 220 mg PO BID 09/20/16 Propylene Glycol/Peg 400 [SYSTANE 1 drop EACHEYE BID 09/20/16 0.3-0.4% EYE DROPS] Psyllium Husk (with Sugar) 1 tsp PO TID PRN 09/20/16 [Metamucil Powder] Verapamil HCl [Verapamil Sr] 120 mg PO DAILY 09/20/16 Tamsulosin HCl [Flomax 0.4 MG (*)] 0.4 mg PO BID 10/01/16 Melatonin [Melatonin 3 MG (*)] 3 mg PO HS 03/19/17 Venlafaxine Xr [Effexor Xr 75MG 75 mg PO DAILY #30 cap 03/24/17 (*)] Sennosides/Docusate Sodium 1 - 2 tab PO BID tab 03/27/17 [Senokot-S] Medical Decision Making - Diagnostics Imaging Results: Imaging Impressions Head CT 06/22/17 07:00 Impression: 1. No evidence for acute intracranial abnormality. 2. Moderate periventricular and deep hemispheric white matter change that can be seen with small vessel ischemic disease. Results called and discussed with the music library assistant for Lopez Leach MD on June 22, 2017 at [address]25 hours. Abdomen/Pelvis CT 06/22/17 07:02 Impression: 1. Abnormal appearance to the left kidney with limited evaluation, with the inability to give contrast. There is loss of visualization of the renal hilum and stranding around the right kidney, which could be inflammation or hematoma. Additionally, there is a masslike appearance inferior pole. Mass or prominent lobulation of the inferior pole of the right kidney. Recommend ultrasound for further evaluation. 2. Subacute or chronic nondisplaced fracture of the transverse process on the left at L1 and L2. Multilevel degenerative change lumbar spine. 3. Other chronic findings, as above. Results called and discussed with music library assistant for Lopez Leach MD on June at 0829 hours. Abdomen/Pelvis Ultrasound 06/22/17 08:27 Impression: Abnormal echogenicity throughout the left kidney and lack of a renal fatty hilum suggesting a diffuse infiltrating process or mass in the left kidney. No definite hematoma in the left kidney or hydronephrosis. Results called and discussed with Lopez Leach MD on June 22, 2017 at 0959 hours. Imaging: Discussed imaging studies w/ supervisor car and yard Radiologist, I viewed and interpreted images myself ED Course/Re-evaluation: CHIEF COMPLAINT: Declining mental status HISTORY OF PRESENT ILLNESS: The patient is an 86 y/o male with dementia arriving from [facility] care unit for evaluation of declining mental status since falling yesterday. EMS was called for a lift assist at that time, which they report they do frequently on this patient, and found only an abrasion on his right knee with no evidence of head strike or other injuries so the decision was made not to transport. The patient's medical history includes atrial fibrillation (not on anticoagulants), type 2 diabetes, prostate cancer, lymphoma, and dementia with disorientation at baseline, but normally able to answer "yes/no" questions. Today he is only repeatedly stating, "please hurt" and moans during abdominal palpation, but is unable to otherwise contribute during exam or assessment. REVIEW OF SYSTEMS: Unable to obtain due to patient presentation. PHYSICAL EXAM: HR, BP, O2 Sat, RR. Temp noted General Appearance: Somnolent, responsive to pain, only stating "please hurt" repeatedly Head: Atraumatic without scalp tenderness or obvious injury Eyes: Pupils equal, round, reactive to light and accommodation, EOMI, no trauma , no injection. Nose: Atraumatic, no rhinorrhea, clear. Throat:Mucus membranes moist. Neck: Supple, non-tender, no lymphadenopathy. Respiratory: No retractions, no distress, no wheezes, and no accessory muscle use. Lungs are clear to auscultation bilaterally. Cardiovascular: Regular rate and rhythm, no murmurs, rubs, or gallops. Good capillary refill all extremities. Gastrointestinal: Abdomen is soft, diffuse tenderness, non-distended, no masses , no rebound, no guarding, no peritoneal signs. Musculoskeletal: Abrasion right knee. Swelling left knee. Neurological: Somnolent, responsive to pain, minimally verbal. No focal deficit. Skin: No rashes, good turgor, no nodules on palpation. PAST MEDICAL HISTORY: atrial fibrillation (not on anticoagulants), CAD, type 2 diabetes, prostate cancer post radiation treatment, lymphoma, melanoma, hyperthyroidism, spinal stenosis, and dementia with disorientation at baseline, but normally able to answer "yes/no" PAST SURGICAL HISTORY: cardiac stent, L1-L4 laminectomy SOCIAL HISTORY: Lives at [facility]. Daughter is MDPOA Prior medical records reviewed including admission 03/19/17 for weakness and confusion. DIAGNOSTICS/PROCEDURES/CRITICAL CARE TIME: The 12 lead EKG was interpreted by myself. See hard copy and/or "tracemaster" electronic copy for interpretation. Head CT: chronic changes, nothing acute Abdominal CT: Abnormal left kidney, possible mass or hematoma. Recommend US for further characterization. Additional chronic changes. Renal US: Infiltrative process left kidney, consider malignancy DIFFERENTIAL DIAGNOSIS: The differential diagnosis for the patient's altered mental status included but was not limited to hypoglycemia, infectious process, electrolyte abnormality, head injury, neurologic process, anemia, cardiac process, and intoxicants. MEDICAL DECISION MAKING: This is an 86 y/o male with dementia who presents with [id number] altered mentation since a fall yesterday. He has moderate diffuse abdominal tenderness on exam and is repetitively stating, "please hurt." No obvious focal deficit. Limited exam and history due to patient presentation. Plan for IV, labs , UA EKG, head CT, and abdominal CT. 0.5mg Dilaudid administered for pain. Labs show WBC elevated, renal insufficiency. Head CT negative, abdominal CT shows abnormal left kidney with US recommended for better evaluation. US ordered. Unable to obtain urine sample yet. Reassessed patient and discussed findings with his daughter who is now at bedside. US shows infiltrative process left kidney that could represent malignancy. He is more comfortable now. 1110: Reassessed patient. We have been unable to obtain a urine sample after multiple catheterization attempts. He has been incontinent here once. I've recommended admission, which daughter agrees to. Spoke with hospitalist service. Dr. Hernandez accepts admission. - Data Points Laboratory Results: Laboratory Results 06/22/17 06:45 06/22/17 06:45 06/22/17 06/22/17 06:45 06:45 WBC 11.71 10^3/uL H 10^3/uL (3.80-9.50) RBC 3.55 10^6/uL L 10^6/uL (4.40-6.38) Hgb 10.0 g/dL L g/dL (13.7-17.5) Hct 30.6 % L % (40.0-51.0) MCV 86.2 fL fL (81.5-99.8) MCH 28.2 pg pg (27.9-34.1) MCHC 32.7 g/dL g/dL (32.4-36.7) RDW 15.4 % H % (11.5-15.2) Plt Count 419 10^3/uL H 10^3/uL (150-400) MPV 9.3 fL fL (8.7-11.7) Neut % (Auto) 78.7 % H % (39.3-74.2) Lymph % (Auto) 9.8 % L % (15.0-45.0) [place] % (Auto) 8.5 % % (4.5-13.0) Eos % (Auto) 1.9 % % (0.6-7.6) Baso % (Auto) 0.5 % % (0.3-1.7) Nucleat RBC Rel Count 0.0 % % (0.0-0.2) Absolute Neuts (auto) 9.21 10^3/uL H 10^3/uL (1.70-6.50) Absolute Lymphs (auto) 1.15 10^3/uL 10^3/uL (1.00-3.00) Absolute Monos (auto) 1.00 10^3/uL H 10^3/uL (0.30-0.80) Absolute Eos (auto) 0.22 10^3/uL 10^3/uL (0.03-0.40) Absolute Basos (auto) 0.06 10^3/uL 10^3/uL (0.02-0.10) Absolute Nucleated RBC 0.00 10^3/uL 10^3/uL (0-0.01) Immature Gran % 0.6 % % (0.0-1.1) Immature Gran # 0.07 10^3/uL 10^3/uL (0.00-0.10) Sodium 142 mEq/L mEq/L (135-145) Potassium 5.0 mEq/L mEq/L (3.5-5.2) Chloride 103 mEq/L mEq/L (97-110) Carbon Dioxide 24 mEq/l mEq/l (22-31) Anion Gap 15 mEq/L mEq/L (8-16) BUN 23 mg/dL mg/dL (7-23) Creatinine 2.2 mg/dL H mg/dL (0.7-1.3) Estimated GFR 29 Glucose 103 mg/dL H mg/dL (70-100) Calcium 9.1 mg/dL mg/dL (8.5-10.4) Total Bilirubin 0.7 mg/dL mg/dL (0.1-1.4) Conjugated Bilirubin 0.5 mg/dL mg/dL (0.0-0.5) Unconjugated Bilirubin 0.2 mg/dL mg/dL (0.0-1.1) AST 21 IU/L IU/L (17-59) ALT 26 IU/L IU/L (21-72) Alkaline Phosphatase 164 IU/L H IU/L (38-126) Total Protein 7.0 g/dL g/dL (6.3-8.2) Albumin 4.1 g/dL g/dL (3.5-5.0) Lipase 99 IU/L IU/L (23-300) Medications Given: Discontinued Medications Hydromorphone HCl (Dilaudid) 0.5 mg IVP EDNOW ONE Stop: 06/22/17 08:11 Last Admin: 06/22/17 08:14 Dose: 0.5 mg Departure - Departure Disposition: [facility] Inpatient Acute Clinical Impression: possible infiltrative process L kidney, Frequent falls, Renal insufficiency Altered mental status Qualifiers: Altered mental status type: unspecified Qualified Code(s): R41.82 - Altered mental status, unspecified Dementia Qualifiers: Dementia type: unspecified type Dementia behavioral disturbance: without behavioral disturbance Qualified Code(s): F03.90 - Unspecified dementia without behavioral disturbance Leukocytosis Qualifiers: Leukocytosis type: other Qualified Code(s): D72.828 - Other elevated white blood cell count Condition: Fair Instructions: Dementia (ED), Fall Prevention for Older Adults (ED) Referrals: Patient,NotPresent [Unknown] - As per Instructions Jarod Zaldivar MD [Medical Doctor] - As per Instructions Report Scribed for: Lopez Leach Report Scribed by: Delores Pruitt Date of Report: 06/22/17 Time of Report: 09:59
[2017-06-22 07:06] LABS: PLATELET COUNT 419 10^3/uL (150-400)
--- NOTE | 2017-06-22 07:22 | CPEKG ---
Heart Rate: 73 RR Interval: 822 P-R Interval: 196 QRSD Interval: 96 QT Interval: 404 QTC Interval: 446 P Cebolla: 70 QRS Cebolla: -45 T Wave Cebolla: 56 EKG Severity - ABNORMAL ECG - EKG Impression: SINUS RHYTHM EKG Impression: ATRIAL PREMATURE COMPLEX EKG Impression: LEFT ANTERIOR FASCICULAR BLOCK Electronically Signed By: Lopez Leach 22-Jun-2017 12:17:24
[2017-06-22] MEDS ORDERED: HYDROmorphONE/DILAUDID 2 MG/ML INJ IVP ONE ×2 (08:10→11:42)
[2017-06-22] MEDS ORDERED: LORazepam 2 MG/ML INJ IVP ONE (11:43)
--- NOTE | 2017-06-22 14:41 | ASMTCMCOM ---
CM Note CM Note Notes: Pt presented to the ED via EMS after having a fall in his room on the Memory Care Unit at [facility]. Pt admtd for multiple falls in the past few months, renal insufficiency, mass on left kidney and possible UTI. Spoke with pt's daughter, Jeanette Horn ([phone]) who is pt's MDPOA. Per Jeanette, pt was recently diagnosed with Alzheimer's (but she later stated dementia) about a month ago. Pt is seen by Dr. Christina Ponce through [facility] ([phone]) primary care practice. Pt was started on Aricept about 2 wks ago and per Jeanette, pt's agitated behavior has improved. Jeanette thinks pt may be in pain/discomfort, which leads to restlessness, which in combination with alzheimers/dementia, resistance to use a walker and/or call for help, and deconditioning (pt refuses to work with PT/OT), are leading to more frequent falls. Pt was adtmd to [facility] in Mar 2017 and was d/c'd to [facility] at the time. Pt has been at [facility] since April. Anticipate pt to return to [facility]; may need new medications for pain (Jeanette requesting that even just Tylenol be added at least) and/or agitation. Exact dc needs unknown. CM to follow. Date Signed: 06/22/2017 02:41 PM Electronically Signed By:Danii Pino RN
[2017-06-22] MEDS ORDERED: oxyCODONE IR 5 MG TAB PO PRN (15:02)
[2017-06-22] MEDS ORDERED: ONDANSETRON DISINTEGRATING 4 MG TAB PO PRN (15:02)
[2017-06-22] MEDS ORDERED: ONDANSETRON 4 MG/2 ML VIAL IVP PRN (15:02)
[2017-06-22] MEDS ORDERED: ACETAMINOPHEN 325 MG TAB PO PRN (15:02)
[2017-06-22] MEDS ORDERED: morphINE 10 MG/0.5 ML UDSYR PO PRN (15:19)
[2017-06-22] MEDS ORDERED: PROMETHAZINE HCL 25 MG/ML INJ IVP PRN (15:19)
[2017-06-22] MEDS ORDERED: HALOPERIDOL LACT 5 MG/ML INJ IVP PRN (15:19)
--- NOTE | 2017-06-22 15:19 | PDGENHP ---
History and Physical - Chief Complaint confusion - History of Present Illness 86 yo M with advanced dementia as well as hx of Grave's, a fib, CAD, brought in from memory care unit with concerns of increased confusion and possible pain. He has had multiple falls at home and for at least the last several days has been unable to really express himself at all. He has had multiplfe falls recently and a large bruise on his flank that seems to hurt him although he is unalbe to communicate that in words. His daughter notes that he has been declining for the last year and more significantly recently. She feels he is suffering. Discussed with her that on w/u for his pain it was found that he has what appears to be a kidney mass concerning for malignancy. She is clear that she does not want aggressive management of this, or of anything, but that her goal and what she feels is in keeping with his goals is to pursue comfort as a primary goal. She would like to change his code status to DNR as well in keeping with this goal. History Information - Allergies/Home Medication List Allergies/Adverse Reactions: atorvastatin [From Lipitor] Allergy (Verified 05/11/17 12:50) penicillin G Allergy (Verified 05/11/17 12:50) Sulfa (Sulfonamide Antibiotics) Allergy (Verified 05/11/17 12:50) Other-Enter Comments IV contrast Allergy (Uncoded 04/21/17 06:12) Other-Enter Comments Home Medications: Amlodipine Besylate [Norvasc] 5 mg PO DAILY 09/20/16 [Last Taken 06/21/17] Aspirin EC [Aspirin EC 325 mg (*)] 325 mg PO DAILY 09/20/16 [Last Taken 06/21/17 ] Gemfibrozil [Lopid 600 MG (*)] 600 mg PO BIDAC 09/20/16 [Last Taken 06/21/17] Loratadine 10 mg PO DAILY 09/20/16 [Last Taken 06/21/17] Methimazole [Tapazole 5MG (*)] 5 mg PO DAILY 09/20/16 [Last Taken 06/21/17] Verapamil HCl [Verapamil Sr] 120 mg PO DAILY 09/20/16 [Last Taken 06/21/17] Tamsulosin HCl [Flomax 0.4 MG (*)] 0.8 mg PO HS 10/01/16 [Last Taken 06/21/17] Melatonin [Melatonin 3 MG (*)] 6 mg PO HS 03/19/17 [Last Taken 06/21/17] C/E/Zn/Cu/OM3/DHA/EPA/LUT/ZEAX [Preservision Areds 2 Softgel] 1 each PO BID [Last Taken 06/21/17] Donepezil HCl [Aricept 5 MG (*)] 5 mg PO HS 06/22/17 [Last Taken 06/21/17] Famotidine [Pepcid 20 MG (*)] 20 mg PO BID 06/22/17 [Last Taken 06/21/17] Psyllium Husk/Aspartame [Metamucil Fiber Singles Packet] 3.4 gm PO DAILY [Last Taken 06/21/17] Venlafaxine Xr [Effexor Xr 75MG (*)] 150 mg PO DAILY 06/22/17 [Last Taken ] I have personally reviewed and updated: family history, medical history, social history, surgical history - Past Medical History atrial fibrillation, coronary artery disease, cancer (prostate, lympoma), dementia, hypertension, hyperlipidemia Additional medical history: atrial fib. CAD s/p stent. HLD. HTN. BPH wiht history of prostate CA s/p radiation tx. lymphoma. melanoma. dementia. hyperthyroidism. hx spinal stenosis - Surgical History Additional surgical history: L1-4 laminectomy - Family History Positive for: non-pertinent Additional family history: denies - Social History Smoking Status: Never smoked Additional social history: Patient lives in memory care unit. COR - DNR per daughter Jeanette CARRASCO. Review of Systems Review of Systems: unobtaible 2/2 mental status Physical Exam Physical Exam: Temp Pulse Resp BP Pulse Ox 36.7 C 93 20 169/103 H 96 06/22/17 14:38 06/22/17 14:38 06/22/17 14:38 06/22/17 14:38 06/22/17 14:38 Constitutional: chronically ill appearing, uncomfortable, unkempt Eyes: PERRL Ears, Nose, Mouth, Throat: moist mucous membranes Cardiovascular: regular rate and rhythym, no murmur, rub, or gallop, No edema Respiratory: no respiratory distress Gastrointestinal: normoactive bowel sounds, soft, non-tender abdomen Skin: warm, normal color Musculoskeletal: generalized weakness Neurologic: CN II-XII Intact, No AAOx3 Psychiatric: encephalopathic, poor memory Lab Data & Imaging Review 06/22/17 06:45 06/22/17 06:45 WBC 11.71 10^3/uL (3.80-9.50) H 06/22/17 06:45 RBC 3.55 10^6/uL (4.40-6.38) L 06/22/17 06:45 Hgb 10.0 g/dL (13.7-17.5) L 06/22/17 06:45 Hct 30.6 % (40.0-51.0) L 06/22/17 06:45 MCV 86.2 fL (81.5-99.8) 06/22/17 06:45 MCH 28.2 pg (27.9-34.1) 06/22/17 06:45 MCHC 32.7 g/dL (32.4-36.7) 06/22/17 06:45 RDW 15.4 % (11.5-15.2) H 06/22/17 06:45 Plt Count 419 10^3/uL (150-400) H 06/22/17 06:45 MPV 9.3 fL (8.7-11.7) 06/22/17 06:45 Neut % (Auto) 78.7 % (39.3-74.2) H 06/22/17 06:45 Lymph % (Auto) 9.8 % (15.0-45.0) L 06/22/17 06:45 [place] % (Auto) 8.5 % (4.5-13.0) 06/22/17 06:45 Eos % (Auto) 1.9 % (0.6-7.6) 06/22/17 06:45 Baso % (Auto) 0.5 % (0.3-1.7) 06/22/17 06:45 Nucleat RBC Rel Count 0.0 % (0.0-0.2) 06/22/17 06:45 Absolute Neuts (auto) 9.21 10^3/uL (1.70-6.50) H 06/22/17 06:45 Absolute Lymphs (auto) 1.15 10^3/uL (1.00-3.00) 06/22/17 06:45 Absolute Monos (auto) 1.00 10^3/uL (0.30-0.80) H 06/22/17 06:45 Absolute Eos (auto) 0.22 10^3/uL (0.03-0.40) 06/22/17 06:45 Absolute Basos (auto) 0.06 10^3/uL (0.02-0.10) 06/22/17 06:45 Absolute Nucleated RBC 0.00 10^3/uL (0-0.01) 06/22/17 06:45 Immature Gran % 0.6 % (0.0-1.1) 06/22/17 06:45 Immature Gran # 0.07 10^3/uL (0.00-0.10) 06/22/17 06:45 Sodium 142 mEq/L (135-145) 06/22/17 06:45 Potassium 5.0 mEq/L (3.5-5.2) 06/22/17 06:45 Chloride 103 mEq/L (97-110) 06/22/17 06:45 Carbon Dioxide 24 mEq/l (22-31) 06/22/17 06:45 Anion Gap 15 mEq/L (8-16) 06/22/17 06:45 BUN 23 mg/dL (7-23) 06/22/17 06:45 Creatinine 2.2 mg/dL (0.7-1.3) H 06/22/17 06:45 Estimated GFR 29 06/22/17 06:45 Glucose 103 mg/dL (70-100) H 06/22/17 06:45 Calcium 9.1 mg/dL (8.5-10.4) 06/22/17 06:45 Total Bilirubin 0.7 mg/dL (0.1-1.4) 06/22/17 06:45 Conjugated Bilirubin 0.5 mg/dL (0.0-0.5) 06/22/17 06:45 Unconjugated Bilirubin 0.2 mg/dL (0.0-1.1) 06/22/17 06:45 AST 21 IU/L (17-59) 06/22/17 06:45 ALT 26 IU/L (21-72) 06/22/17 06:45 Alkaline Phosphatase 164 IU/L (38-126) H 06/22/17 06:45 Total Protein 7.0 g/dL (6.3-8.2) 06/22/17 06:45 Albumin 4.1 g/dL (3.5-5.0) 06/22/17 06:45 Lipase 99 IU/L (23-300) 06/22/17 06:45 Imaging Review: head cT no acute changes abd pelvis CT: right kidney mass abd US: diffuse infiltrating process right kidney mass Visualized and Interpreted EKG results: Yes EKG Interpretation: Positive for: normal sinsus rhythm Assessment & Plan Assessment: Dementia (Acute) Altered mental status (Acute) Frequent falls (Acute) Leukocytosis (Acute) Renal insufficiency (Acute) 86 yo M with significant dementia admitted with AMS acute on chronic as well as found to have new kidney mass # acute on chronic encephalopathy: in the setting of advanced dementia with now concurrent delerium in setting of what is likely terminal delirium related to underlying malignant process and general FTT. At this time goal is for supportive/comfort care only as below # renal mass: suspicuous for malignancy noted on both CT and US, given advanced dementia and goals of care no plans to work this up further at this point # theresa on ckd: baseline creat most recently 1.7 , again infiltrating mass noted on right kidney but also appears to be retaining urine, unable to pass calderón and unable to obtain UA, will hold off given goals for comfort only # anemai: relatively stable, large area of ecchymosis on flank, monitoring # Chronic medical issues: HTN, HLD, Bph, Graves, a fib, CAD--no changes to op mgmmt # IP status patient new to my care. Old records reviewed and summarized as above. Code DNR, comfort care primary goal
[2017-06-22] MEDS ORDERED: HYDROmorphone HCL/NS 0.5 MG/ML SYR IVP PRN (15:21)
[2017-06-22] MEDS: GEMFIBROZIL 600 MG TAB PO SCH (15:42)
[2017-06-22] MEDS: LORazepam 2 MG/ML INJ IVP PRN ×2 (18:26→20:26)
[2017-06-22] MEDS: TAMSULOSIN HCL 0.4 MG CAP PO SCH (20:22)
[2017-06-22] MEDS: DONEPEZIL HCL 5 MG TAB PO SCH (20:23)
[2017-06-22] MEDS: FAMOTIDINE 20 MG TAB PO SCH (20:23)
[2017-06-22] MEDS: MELATONIN 3 MG TAB PO SCH (20:23)
[2017-06-22] MEDS: PRESERVISION AREDS2 FORMULA EYE VIT 1 EACH PO SCH (20:32)
--- NOTE | 2017-06-23 08:49 | PDMN ---
Medical Necessity Medical necessity: [facility]/ [facility] oncology: AMS with new Dg: kidney mass suspicious for malignancy: mult. falls, FTT, elevated Cr (1.7, 2.2) retaining urine, unable to pass calderón. anemia. anticipate > 2 midnights ongoing med nec care
[2017-06-23] MEDS ORDERED: NON-FORMULARY NEW DRUG (Psyllium Husk/Aspartame [Metamucil Fiber Singles Packet] 3.4 GM) PO SCH (09:00)
[2017-06-23] MEDS ORDERED: CETIRIZINE 10 MG TAB PO SCH (09:00)
[2017-06-23] MEDS ORDERED: NON-FORMULARY NEW DRUG (Loratadine [Loratadine] 10 MG) PO SCH (09:00)
[2017-06-23] MEDS ORDERED: NON-FORMULARY NEW DRUG (Verapamil Hcl [Verapamil Sr] 120 MG) PO SCH (09:00)
[2017-06-23] MEDS ORDERED: VENLAFAXINE XR 75 MG CAP PO SCH (09:00)
[2017-06-23] MEDS: ASPIRIN EC 325 MG TAB PO SCH (09:26)
[2017-06-23] MEDS: PRESERVISION AREDS2 FORMULA EYE VIT 1 EACH PO SCH (09:26)
[2017-06-23] MEDS: VERAPAMIL ER 120 MG TAB PO SCH (09:26)
[2017-06-23] MEDS: ENOXAPARIN 40 MG/0.4 ML SYR SC SCH (09:26)
[2017-06-23] MEDS: FAMOTIDINE 20 MG TAB PO SCH (09:27)
[2017-06-23] MEDS: METHIMAZOLE 5 MG TAB PO SCH (09:27)
[2017-06-23] MEDS: GEMFIBROZIL 600 MG TAB PO SCH (09:27)
[2017-06-23] MEDS: amLODIPine BESYLATE 5 MG TAB PO SCH (09:27)
--- NOTE | 2017-06-23 09:38 | WOCRNPDOC ---
WOCRN Advanced Assessment Note - Skin Integrity Problem, Advanced Assess Sacrum Dressing Type: Open to Air Site Measurement - Head-to-Toe Length X Width X Depth (cm): 3.6x1.6x0 Pressure Injury Stage: Deep Tissue Injury (DTI) Pressure Injury Present on Admit: Yes Skin Integrity Problem Comment: All skin currently intact. It is possible that this is a bruise from a fall, however it also presents as a classic DTI without any zack wound erythema (which is suspicious for it being a contusion not a DTI) . WC will round and wound will declare itsself later this week/early next week. Left Distal Knee Abrasion Dressing Type: Allevyn Life Dressing Description: Clean/Dry, Intact Exudate Amount: Minimal Exudate Characteristic(s): Serous Integumentary Issue Intervention: Visualized Under Dressing Zack Wound Tissue: Erythema Wound Bed Constitution: Smooth Tissue Site Measurement - Head-to-Toe Length X Width X Depth (cm): 2.2x3.4x0.2 Skin Integrity Problem Comment: Deep abrasion with skin tear along inferior margin. WC will write orders to treat and will follow.
[2017-06-23] MEDS: PSYLLIUM METAMUCIL 1 PKT PO SCH (09:48)
[2017-06-23] MEDS ORDERED: traMADol 50 MG TAB PO PRN (13:52)
--- NOTE | 2017-06-23 13:56 | ASMTCMCOM ---
CM Note CM Note Notes: Discussed patient case with physician. Family electing for palliative care but not wanting a formal hospice consult at this point in time. He will likely return to [facility] with comfort care in place. He may continue to decline while here in the hospital and at some point need a palliative/hopsice consult. Per hospital medicine, patient likely to need another 3-4 days as inpatient. CM to follow. Date Signed: 06/23/2017 01:55 PM Electronically Signed By:Blossom Treviño RN
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
[2017-06-23] MEDS: ACETAMINOPHEN 500 MG TAB PO SCH ×2 (15:53→21:31)
[2017-06-23] MEDS: TAMSULOSIN HCL 0.4 MG CAP PO SCH (21:31)
[2017-06-23] MEDS: MELATONIN 3 MG TAB PO SCH (21:32)
[2017-06-23] MEDS: DONEPEZIL HCL 5 MG TAB PO SCH (21:34)
[2017-06-24] MEDS: ASPIRIN EC 325 MG TAB PO SCH (09:29)
[2017-06-24] MEDS: ACETAMINOPHEN 500 MG TAB PO SCH ×2 (09:29→17:21)
[2017-06-24] MEDS: VERAPAMIL ER 120 MG TAB PO SCH (09:29)
[2017-06-24] MEDS: amLODIPine BESYLATE 5 MG TAB PO SCH (09:29)
[2017-06-24] MEDS: METHIMAZOLE 5 MG TAB PO SCH (09:30)
[2017-06-24] MEDS: ENOXAPARIN 40 MG/0.4 ML SYR SC SCH (09:35)
[2017-06-24] MEDS: PSYLLIUM METAMUCIL 1 PKT PO SCH (10:08)
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
[2017-06-25] MEDS: TAMSULOSIN HCL 0.4 MG CAP PO SCH ×2 (00:27→21:18)
[2017-06-25] MEDS: ACETAMINOPHEN 500 MG TAB PO SCH ×4 (00:28→21:17)
[2017-06-25] MEDS: MELATONIN 3 MG TAB PO SCH ×2 (00:28→21:17)
[2017-06-25] MEDS: DONEPEZIL HCL 5 MG TAB PO SCH ×2 (00:28→21:18)
[2017-06-25] MEDS: VERAPAMIL ER 120 MG TAB PO SCH (09:47)
[2017-06-25] MEDS: METHIMAZOLE 5 MG TAB PO SCH (09:48)
[2017-06-25] MEDS: ENOXAPARIN 40 MG/0.4 ML SYR SC SCH (09:48)
[2017-06-25] MEDS: amLODIPine BESYLATE 5 MG TAB PO SCH (09:48)
[2017-06-25] MEDS: ASPIRIN EC 325 MG TAB PO SCH (09:48)
[2017-06-25] MEDS: PSYLLIUM METAMUCIL 1 PKT PO SCH (09:49)
--- NOTE | 2017-06-25 12:53 | ASMTCMCOM ---
CM Note CM Note Notes: Dr Pham met with pt and his daughter Jeanette today. Decision made for pt to DC back to [facility] with hospice. Jeanette asked case mgmt to check with [facility] for hospice they use. Decision made to go with [facility]. Referral faxed. No meeting time set yet. CM to follow. Date Signed: 06/25/2017 12:53 PM Electronically Signed By:Zuleima Womack LCSW
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
[2017-06-26] MEDS: ASPIRIN EC 325 MG TAB PO SCH (07:56)
[2017-06-26] MEDS: amLODIPine BESYLATE 5 MG TAB PO SCH (07:56)
[2017-06-26] MEDS: METHIMAZOLE 5 MG TAB PO SCH (07:56)
[2017-06-26] MEDS: VERAPAMIL ER 120 MG TAB PO SCH (07:56)
[2017-06-26] MEDS: ENOXAPARIN 40 MG/0.4 ML SYR SC SCH ×2 (07:56→07:57)
[2017-06-26] MEDS: ACETAMINOPHEN 500 MG TAB PO SCH ×3 (07:58→21:13)
[2017-06-26] MEDS: PSYLLIUM METAMUCIL 1 PKT PO SCH (08:00)
--- NOTE | 2017-06-26 15:44 | ASMTCMCOM ---
CM Note CM Note Notes: [facility] came to evaluate pt today and want family to set up add'l care before pt returns there. The plan is now for pt to DC tomorrow and [facility] hospice will start then. Cm to follow. Date Signed: 06/26/2017 03:43 PM Electronically Signed By:Zuleima Womack LCSW
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
[2017-06-26] MEDS ORDERED: OLANZapine 2.5 MG TAB PO PRN (20:48)
[2017-06-26] MEDS: MELATONIN 3 MG TAB PO SCH (21:13)
[2017-06-26] MEDS: TAMSULOSIN HCL 0.4 MG CAP PO SCH (21:13)
[2017-06-26] MEDS: DONEPEZIL HCL 5 MG TAB PO SCH (21:13)
[2017-06-27 03:55] VITALS: O2SAT 94
[2017-06-27 04:33] VITALS: RESP 18
[2017-06-27] MEDS: ACETAMINOPHEN 500 MG TAB PO SCH (05:36)
[2017-06-27 09:23] VITALS: BP 144/83; PULSE 78; TEMP 97.6
[2017-06-27] MEDS: amLODIPine BESYLATE 5 MG TAB PO SCH (09:52)
[2017-06-27] MEDS: VERAPAMIL ER 120 MG TAB PO SCH (09:53)
[2017-06-27] MEDS: ASPIRIN EC 325 MG TAB PO SCH (09:53)
[2017-06-27] MEDS: METHIMAZOLE 5 MG TAB PO SCH (09:54)
[2017-06-27] MEDS: PSYLLIUM METAMUCIL 1 PKT PO SCH (11:07)
--- NOTE | 2017-06-27 11:07 | PDIAF ---
- Diagnosis Diagnosis: TING Code Status: Do Not Resuscitate - Medication Management Discharge Medications: Medications to Continue on Transfer Amlodipine Besylate [Norvasc] 5 mg PO DAILY 09/20/16 [Last Taken 06/21/17] Aspirin EC [Aspirin EC 325 mg (*)] 325 mg PO DAILY 09/20/16 [Last Taken 06/21/17 ] Methimazole [Tapazole 5MG (*)] 5 mg PO DAILY 09/20/16 [Last Taken 06/21/17] Verapamil HCl [Verapamil Sr] 120 mg PO DAILY 09/20/16 [Last Taken 06/21/17] Tamsulosin HCl [Flomax 0.4 MG (*)] 0.8 mg PO HS 10/01/16 [Last Taken 06/21/17] Melatonin [Melatonin 3 MG (*)] 6 mg PO HS 03/19/17 [Last Taken 06/21/17] C/E/Zn/Cu/OM3/DHA/EPA/LUT/ZEAX [Preservision Areds 2 Softgel] 1 each PO BID [Last Taken 06/21/17] Donepezil HCl [Aricept 5 MG (*)] 5 mg PO HS 06/22/17 [Last Taken 06/21/17] Famotidine [Pepcid 20 MG (*)] 20 mg PO BID 06/22/17 [Last Taken 06/21/17] Psyllium Husk/Aspartame [Metamucil Fiber Singles Packet] 3.4 gm PO DAILY [Last Taken 06/21/17] Venlafaxine Xr [Effexor Xr 75MG (*)] 150 mg PO DAILY 06/22/17 [Last Taken ] Acetaminophen [Tylenol ES 500 mg (*)] 1,000 mg PO Q8 tab 06/27/17 [Last Taken Unknown] Discharge Medications: Refer to the Discharge Home Medication list for PRN reason. - Orders Services needed: Registered Nurse, Certified [employer]ty [employer] Cook Isolation Type: None Diet Recommendation: no restrictions on diet Diet Texture: Regular Texture Diet Additional: with hospice - Follow Up Care Current Providers and Referrals: Jarod Zaldivar MD [Medical Doctor] - As per Instructions Patient,NotPresent [Unknown] - As per Instructions
--- NOTE | 2017-06-27 11:20 | GDS ---
[f rep st] DISCHARGE SUMMARY DISCHARGE DIAGNOSES: 1. Acute dehydration. 2. Acute kidney injury. 3. Advanced dementia. 4. Renal mass. 5. Urinary retention. HISTORY OF PRESENT ILLNESS: An 86-year-old male with advanced dementia, Graves, atrial fibrillation, who was brought in from memory care unit with concerns of increased confusion and possible pain. He had multiple falls at home and for the several days prior to admission was unable to express himself at all. His daughter notes that he has been declining in the last year and more significantly over the last couple months. During this evaluation, it was found that he had a kidney mass, which was co ncerning for malignancy. HOSPITAL COURSE BY PROBLEM: 1. TING secondary to dehydration with decreased p.o. intake with advancing dementia. This resolved w ith IV fluids. 2. Advanced dementia. Is at the memory care unit at [facility]. Dr. Pham had extensive conversa tion with patient's daughter who agrees to discharge with hospice. 3. Renal mass. This is likely cancer. Family does not want to pursue any further evaluation. 4. Urinary retention. He has been requiring straight cath here. Would recommend to continue this i f greater than 300-400 cc urine. DISPOSITION: Patient is stable for discharge to [facility] with hospice. MEDICATIONS: See medication reconciliation. PHYSICAL EXAMINATION: VITAL SIGNS: Today, temperature 36.4, blood pressure 144/83, heart rate 78, r espirations 18, 94% on room air. GENERAL: Sitting up in bed. No acute distress. HEENT: PERRLA. EOMI. Oropharynx clear. CV: Regular rate and rhythm. No murmurs, gallops, or rubs. LUNGS: Clear to auscultation bilaterally. ABDOMEN: Obese, soft, nontender, nondistended. Positive bowel sounds . : No Singer. MUSCULOSKELETAL: Moving all 4 extremities. NEURO: 2-12 intact. PSYCH: Alert, answering questions. /[id number]/MODL
--- NOTE | 2017-06-27 11:21 | ASMTCMCOM ---
CM Note CM Note Notes: Pt ready for DC back to [facility] with [facility]. Pt's dtr and her will provide transport. Both facilities alerted and final orders faxed. Date Signed: 06/27/2017 11:20 AM Electronically Signed By:Zuleima Womack LCSW
--- NOTE | 2017-06-27 14:02 | ASDISCHSUM ---
Discharge Information Plan Status: Medically Cleared to Leave: Discharge Date:06/27/2017 11:17 AM D/C Disposition: ADT D/C Disposition:Shelter Facility Projected Discharge Date:06/27/2017 11:00 AM Transportation at D/C: Discharge Delay Reason: Follow-Up Date:06/27/2017 11:00 AM Discharge Slot: Final Diagnosis: Placement Information Referral Type:*Group Home/SNF Referral ID:[id number] Provider Name: Address 1: Phone Number: Address 2: Fax Number: City: Selection Factors: State: Referral Type:*Hospice Referral ID:[id number] Provider Name:[facility] Address 1:[address] [address] Phone Number: Address 2: Fax Number: City:[place] Selection Factors: State:[place] Referral Type:Assisted Living Residence Referral ID:[id number] Provider Name:[facility] Address 1:[address] [facility] Phone Number: Address 2: Fax Number: [facility]:[place] Selection Factors: State:[place] Patient Contact Information Contact Name:JAMAICA Relationship:Daughter Address:[address] Home Phone: City:[place] Phone: State/Zip Code:[place] [address] Email: Financial Information Financial Class:Medicare Advantage Plans Primary Plan Desc:[employer]ARE ADV Primary Plan Number:[id number] Secondary Plan Desc: Secondary Plan Number: Assessment Information [facility] CM Progress Note CM Note CM Note Notes: Pt presented to the ED via EMS after having a fall in his room on the Memory Care Unit at [facility]. Pt admtd for multiple falls in the past few months, renal insufficiency, mass on left kidney and possible UTI. Spoke with pt's daughter, Jeanette Horn ([phone]) who is [facility]. Per Jeanette, pt was recently diagnosed with Alzheimer's (but she later stated dementia) about a month ago. Pt is [facility] by [facility] ([phone][facility] care [facility]. Pt was started on Aricept about 2 wks ago and per Jeanette, pt's agitated behavior has improved. Jeanette thinks pt may be in pain/discomfort, which leads to restlessness, which in combination with alzheimers/dementia, resistance to use a walker and/or call for help, and deconditioning (pt refuses to work with PT/OT), are leading to more frequent falls. Pt was adtmd to [facility] in Mar 2017 and was d/c'd to [facility] at the time. Pt has been at [facility] April. [facility]; may need new medications for pain (Jeanette requesting that even just Tylenol be added at least) and/or agitation. Exact dc needs unknown. CM to follow. Date Signed: 06/22/2017 02:41 PM Electronically Signed By:Danii Pino RN [facility] CM Progress Note CM Note CM Note Notes: Discussed patient case with physician. Family electing for palliative care but not wanting a formal hospice consult at this point in time. He will likely return to [facility] with comfort care in place. He may continue to decline while here in the hospital and at some point need a palliative/hopsice consult. Per hospital medicine, patient likely to need another 3-4 days as inpatient. CM to follow. Date Signed: 06/23/2017 01:55 PM Electronically Signed By:Blossom Treviño RN [facility] CM Progress Note CM Note CM Note Notes: Dr Pham met with pt and his daughter Jeanette today. Decision made for pt to DC back to [facility] with hospice. Jeanette asked case mgmt to check with [facility] for hospice they use. Decision made to go with [facility]. Referral faxed. No meeting time set yet. CM to follow. Date Signed: 06/25/2017 12:53 PM Electronically Signed By:Zuleima Womack LCSW [facility] CM Progress Note CM Note CM Note Notes: [facility] came to evaluate pt today and want family to set up add'l care before pt returns there. The plan is now for pt to DC tomorrow and [facility] will start then. Cm to follow. Date Signed: 06/26/2017 03:43 PM Electronically Signed By:Zuleima Womack LCSW [facility] CM Progress Note CM Note CM Note Notes: Pt ready for DC back to [facility] [place] with [facility]. Pt's dtr and her will provide transport. Both facilities alerted and final orders faxed. Date Signed: 06/27/2017 11:20 AM Electronically Signed By:Zuleima Womack LCSW Intervention Information Intervention Type:*IM-Signed Date of Service:06/27/2017 10:52 AM Patient Type:Inpatient Staff Member:Kelly Avelar Hours: Discipline: Severity: Comment:
--- NOTE | 2017-07-01 13:06 | PQFORM ---
PHYSICIAN QUERY FORM Needs Your Response This query form is being sent to you to assure this patient record is coded properly. Please respond to the question below: SQL ANALYST QUESTION: Efrain Encephalopathy secondary to dehydration was documented through out this patients record but not addressed in the Discharge Summary. Did this patient have Encephalopathy? x ___ Yes ___ No ___ Unable to Determine ___ Other (Please specify ) Thank You Dianelys STEVENS Master Barber INSTRUCTIONS FOR RESPONSE: Answer question by clicking on the "Edit Document" button. Move cursor to area below the stars. When complete, hit "Save." Click on the "Sign" button, then click "Sign" again. Type in your PIN and hit "Enter." MTDD
== END 2017-06-27 11:17 | DRG 640 ==
LOC: EDUNIT# → OBSVTOIN 11:26 → F1N 13:46
PROVIDERS: ADMIT Internal Medicine; ATTEND Internal Medicine
DX: E86.0 Dehydration (principal); G93.40 Encephalopathy, unspecified; N17.9 Acute kidney failure, unspecified; F03.90 Unspecified dementia, unspecified severity, without behavioral disturbance, psychotic disturbance, mood disturbance, and anxiety; C64.9 Malignant neoplasm of unspecified kidney, except renal pelvis; I12.9 Hypertensive chronic kidney disease with stage 1 through stage 4 chronic kidney disease, or unspecified chronic kidney disease; N18.9 Chronic kidney disease, unspecified; R33.9 Retention of urine, unspecified; C85.90 Non-Hodgkin lymphoma, unspecified, unspecified site; I48.91 Unspecified atrial fibrillation; E11.9 Type 2 diabetes mellitus without complications; I25.10 Atherosclerotic heart disease of native coronary artery without angina pectoris; E05.00 Thyrotoxicosis with diffuse goiter without thyrotoxic crisis or storm; Z91.81 History of falling; Z87.440 Personal history of urinary (tract) infections; Z66 Do not resuscitate; Z85.46 Personal history of malignant neoplasm of prostate
CPT/HCPCS: 96374; 97116-GP; 97161-GP; 97165-GO; G8978-GP-CJ; G8979-GP-CI; G8987-GO-CL; G8988-GO-CK; G8988-GO-CL; G8989-GO-CL; J1170; J1650; J2060